=== PATIENT | female | born 1935 | race Caucasian/White ===

== ENCOUNTER 2018-12-11 16:38 | Inpatient (IN) | payer OTHER ==
--- NOTE | 2018-12-11 16:44 | PDOC ---
Rapid Medical Evaluation Medical Evaluation: I have performed a brief in-person evaluation of this patient. The patient presents with a chief complaint of: hx of DM, CABG, HTN; C/O generalized abdominal pain, emesis, watery diarrhea x 2-3 days ; denies recent travel; her PCP Chitra Lam had done bloodwork and CT A/P; bloodwork showed elevated lipase (please refer to paperwork patient's daughter brought) - wants patient admitted pancreatitis Pertinent physical exam findings: In NAD I have ordered the following: Labs, IVF The patient will proceed to the ED for further evaluation. 12/11/18 16:39
[2018-12-11] MEDS ORDERED: SODIUM CHLORIDE 500 ML IV STA (16:45)
[2018-12-11] MEDS ORDERED: SODIUM CHLORIDE 1,000 ML IV STA (17:18)
[2018-12-11] MEDS ORDERED: LACTATED RINGERS SOLUTION 1000 ML INFUS.BAG IV ONE (17:19)
[2018-12-11] MEDS ORDERED: morphine CARPU-JECT 2 MG/1 ML DISP.SYRIN IVPUSH ONE (17:31)
[2018-12-11] MEDS ORDERED: ONDANSETRON 4 MG/2 ML VIAL IVPUSH ONE (17:31)
[2018-12-11] MEDS ORDERED: morphine SULFATE 4 MG/ML VIAL ONE (17:37)
[2018-12-11] MEDS ORDERED: ONDANSETRON 4 MG/2 ML VIAL ONE (17:37)
--- NOTE | 2018-12-11 17:42 | PDOC ---
History of Present Illness - General Chief Complaint: Pain Stated Complaint: SEND BY HER DOCTOR Time Seen by Provider: 12/11/18 16:39 History Source: Patient Exam Limitations: Language Barrier ([place] speaker used) - History of Present Illness Initial Comments: 12/11/18 17:32 Patient is 83F with history of DM, CABG, vertigo and HTN here today with abdominal pain that started two weeks ago. Patient was evaluated at [facility] yesterday and found to have a lipase of >5000 and elevated lipase ( patient has paperwork from discharge at bedside). CT showed wall calcifications , trace pericholecystic fluid, gallbladder duct dilatation, but no definite pancreatitis or cholecystitis ([facility] contacted). Patient endorses epigastric abdominal pain, nausea, vomiting. Denies fevers, chills. Denies chest pain and shortness of breath. PCP: Genaro GI: Kofi Das) Past History - Past Medical History Allergies/Adverse Reactions: Allergies Allergy/AdvReac Type Severity Reaction Status Date / Time No Known Allergies Allergy Verified 12/11/18 16:44 Home Medications: Ambulatory Orders Atorvastatin Ca [Lipitor] 40 mg PO HS 12/11/18 Cardiac Disorders: Yes (tripple bypass) COPD: No Dementia: (?) Diabetes: Yes HTN: Yes Other medical history: hard of hearing - Suicide/Smoking/Psychosocial Hx Smoking History: Current every day smoker Number of Cigarettes Smoked Daily: 2 Information on smoking cessation initiated: No Hx Alcohol Use: Yes (socially) Drug/Substance Use Hx: No Review of Systems - Review of Systems Comments:: 12/11/18 17:44 GENERAL/CONSTITUTIONAL: No fever or chills. No weakness. HEAD, EYES, EARS, NOSE AND THROAT: No change in vision. No sore throat. CARDIOVASCULAR: No chest pain or shortness of breath RESPIRATORY: No cough, wheezing, or hemoptysis. GASTROINTESTINAL: +nausea, +vomiting, +diarrhea. GENITOURINARY: No dysuria, frequency, or change in urination. MUSCULOSKELETAL: No joint or muscle swelling or pain. No neck or back pain. SKIN: No rash NEUROLOGIC: No headache, vertigo, loss of consciousness, or change in strength/ sensation. ENDOCRINE: No increased thirst. No abnormal weight change HEMATOLOGIC/LYMPHATIC: No anemia, easy bleeding, or history of blood clots. ALLERGIC/IMMUNOLOGIC: No hives or skin allergy. *Physical Exam - Vital Signs Last Vital Signs Temp Pulse Resp BP Pulse Ox 97.9 F 66 18 171/75 H 99 12/11/18 16:40 12/11/18 16:40 12/11/18 16:40 12/11/18 16:40 12/11/18 16:40 - Physical Exam Comments: 12/11/18 17:46 GENERAL: Awake, alert, and fully oriented, in no acute distress HEAD: No signs of trauma, normocephalic, atraumatic EYES: PERRLA, EOMI, sclera anicteric, conjunctiva clear ENT: Auricles normal inspection, hearing grossly normal, nares patent, oropharynx clear without exudates. Moist mucosa NECK: Normal ROM, supple, no lymphadenopathy, JVD, or masses LUNGS: No distress, speaks full sentences, clear to auscultation bilaterally HEART: Regular rate and rhythm, normal S1 and S2, no murmurs, rubs or gallops, peripheral pulses normal and equal bilaterally. ABDOMEN: Soft, tender in epigastrium, normoactive bowel sounds. No guarding, no rebound. EXTREMITIES: Normal inspection, Normal range of motion, no edema. No clubbing or cyanosis. NEUROLOGICAL: Cranial nerves II through XII grossly intact. Normal speech, no focal sensorimotor deficits SKIN: Warm, Dry, normal turgor, no rashes or lesions noted. ED Treatment Course - LABORATORY CBC & Chemistry Diagram: 12/11/18 17:01 12/11/18 17:06 - RADIOLOGY Radiology Studies Ordered: Category Date Time Status ABDOMEN US -LIMITED [US] Stat Ultrasound 12/11/18 17:17 Ordered - Medications Given in the ED: ED Medications Discontinued Medications Generic Name Dose Route Start Last Admin Trade Name Freq PRN Reason Stop Dose Admin Sodium Chloride 500 mls @ 500 mls/hr 12/11/18 16:45 12/11/18 17:23 Normal Saline - IV 12/11/18 17:44 Not Given ASDIR STA Lactated Ringer's 1,000 ml 12/11/18 17:19 12/11/18 17:28 Lactated Ringers Solution IV 12/11/18 17:20 1,000 ml ONCE ONE Administration Medical Decision Making - Medical Decision Making 12/11/18 17:47 Patient is 83F with history of DM, CABG, HTN and vertigo here today with abdominal pain. Elevated lipase and amylase yesterday. CT showed no specific pancreatitis. Will evaluate with cbc, cmp, lipase, ua, us. Will admit. 12/11/18 18:50 Lipase 2k, down from 5k yesterday. CBC stable. CMP shows elevated glucose, no gap. UA shows glucose. US shows cbd of 0.87, gallstone of 1.7x1.1cm at neck. Dr Kong (GI) and Dr Lam paged. 12/11/18 19:06 Case d/w Dr Kong and Genaro, will keep NPO and admit. Takes aspirin, can continue baby aspirin. No other antiplatelets or AC. *DC/Admit/Observation/Transfer Diagnosis at time of Disposition: Gallstone pancreatitis - Discharge Dispostion Condition at time of disposition: Stable Decision to Admit order: Yes - Referrals Referrals: Chitra Lam [Primary Care Provider] - - Patient Instructions - Post Discharge Activity
[2018-12-11 17:58] LABS: ALBUMIN 3.6 g/dl (3.4-5.0); BILIRUBIN,TOTAL 0.2 mg/dL (0.2-1); CALCIUM 9.4 mg/dL (8.5-10.1); CREATININE 1.3 mg/dL (0.55-1.3); POTASSIUM 3.7 mmol/L (3.5-5.1); TOT PROT 7.7 g/dl (6.4-8.2)
[2018-12-11 17:59] LABS: BASO % 0.3 % (0-2.0); EOS % 0.3 % (0-4.5); HEMATOCRIT 35.6 % (32.4-45.2); HEMOGLOBIN 11.7 GM/dL (10.7-15.3); LYMPH % 13.2 % (8-40); MCHC 32.8 g/dl (32.0-36.0); MEAN CELL VOLUME 91.5 fl (80-96); MEAN PLT VOLUME 8.9 fl (7.5-11.1); MONO % 6.3 % (3.8-10.2); NEUT % 79.9 % (42.8-82.8); PLATELET COUNT 317 K/MM3 (134-434); RBC 3.89 M/mm3 (3.60-5.2); RDW 15.6 % (11.6-15.6); WHITE BLOOD COUNT 4.4 K/mm3 (4.0-10.0)
[2018-12-11 18:00] LABS: EPI CELLS 2.1 /HPF (0-5/HPF); URINE APPEARANCE CLEAR; URINE BACTERIA 3.5 /hpf (NEGATIVE); URINE BILIRUBIN NEGATIVE (NEGATIVE); URINE CASTS 6 /lpf (0-8); URINE COLOR YELLOW; URINE GLUCOSE (UA) 3+ (NEGATIVE); URINE KETONE NEGATIVE (NEGATIVE); URINE LEUK ESTERASE TRACE (NEGATIVE); URINE NITRITE NEGATIVE (NEGATIVE); URINE PROTEIN TRACE (NEGATIVE); URINE RBC 1 /hpf (0-4); URINE UROBILINOGEN 0.2 mg/dL (0.2-1.0); URINE WBC 6 /hpf (0-5)
[2018-12-11] MEDS ORDERED: LACTATED RINGERS SOLUTION 1,000 ML/1,000 ML INFUS.BAG IV SCH (19:15)
--- NOTE | 2018-12-11 19:42 | PDOC ---
Documentation entered by Karen Collins SCRIBE, acting as scribe for Tracy Larson MD. Tracy Larson MD: This documentation has been prepared by the Karina roach Adrianna, SCRIBE, under my direction and personally reviewed by me in its entirety. I confirm that the documentation accurately reflects all work, treatment, procedures, and medical decision making performed by me. Attending Attestation - Resident Resident Name: Obie Spear - [facility] HPI: The patient is an 83 year old female, with a significant PMH of coronary heart disease (s/p CABG), diabetes, vertigo, and hypertension, who presents to the emergency department today complaining of abdominal pain, nausea, vomit, and diarrhea for 2 days. Patient reports epigastric abdominal pain, multiple episodes of NBNB emesis, and watery stool. Patient endorses going to [place] yesterday for these issues, and had CT abdomen/pelvis with gallstones and elevated lipase (>5000). Patient saw her PCP earlier today, who advised she comes to the ER for admission of pancreatitis. Patient endorses feeling slightly better while in the ED, and denies being nauseous at this time. The patient denies chest pain, shortness of breath, headache and dizziness. Denies fever, chills, and constipation. Denies dysuria, frequency, urgency and hematuria. Denies recent travel Allergies: NKA Past surgical history: CABG Social history: No reported PCP: Dr. Chitra Lam GI: Dr. Kirby 12/11/18 18:08 - Physicial Exam PE: GENERAL: +Slightly cachectic. Awake, alert, and fully oriented. HEAD: No signs of trauma EYES: PERRLA, EOMI, sclera anicteric, conjunctiva clear ENT: Auricles normal inspection, hearing grossly normal, nares patent, oropharynx clear without exudates. Moist mucosa NECK: Normal ROM, supple, no lymphadenopathy, JVD, or masses LUNGS: Breath sounds equal, clear to auscultation bilaterally. No wheezes, and no crackles HEART: Regular rate and rhythm, normal S1 and S2, no murmurs, rubs or gallops ABDOMEN: Soft, nontender, normoactive bowel sounds. No guarding, no rebound. No masses EXTREMITIES: Normal range of motion, no edema. No clubbing or cyanosis. No cords, erythema, or tenderness NEUROLOGICAL: Cranial nerves II through XII grossly intact. Normal speech, normal gait SKIN: Warm, Dry, normal turgor, no rashes or lesions noted. 12/11/18 18:28 - Medical Decision Making 18:20pm- paged Dr. Lam's call service, awaiting call back 18:48pm- paged Dr. Kong's service, awaiting call back 18:52pm- resident spoke with Dr. Lam concerning patient's care, she is in agreement with the plan 19:00pm- resident spoke with Dr. Kong concerning patient's care, he is in agreement with the plan 12/11/18 19:31 12/11/18 19:33 Pt presents to the ED complaining of a two week history of epigastric abdominal pain and nausea and vomiting. Seen at an outside hospital and had labs and imaging consistent with pancreatitis. Today, labs are also consistent with pancreatitis. US shows large gallstone in the gall bladder neck with dilated CBD. Will admit to medicine. Surgery and GI consulted. 12/11/18 19:44 EXAM#: TYPE/EXAM: RESULT: [id number] US/ABDOMEN US -LIMITED Pancreatitis. IMPRESSION: Gallstones and a sludge without wall thickening or pericholecystic free fluid. Dilated common bile duct measuring 9 mm for which further evaluation with MRCP is needed. Reported By: Qiana Cordoba MD 12/11/18 19:09
[2018-12-11] MEDS ORDERED: MECLIZINE HCL 12.5 MG TABLET PO PRN (22:21)
[2018-12-11] MEDS ORDERED: ONDANSETRON 4 MG/2 ML VIAL IVPB PRN (22:29)
[2018-12-11] MEDS ORDERED: SODIUM CHLORIDE 1,000 ML IV SCH (22:30)
[2018-12-11] MEDS: INSULIN SLIDING SCALE (NOVOLOG) 1 VIAL SQ SCH ×2 (22:46→23:02)
[2018-12-11] MEDS: INSULIN (NOVOLOG) ASPART 100 UNITS/ML 10ML VIAL SQ SCH (22:50)
[2018-12-11] MEDS ORDERED: amLODIPine BESYLATE 2.5 MG TABLET (FP) PO ONE (23:15)
[2018-12-12] MEDS: INSULIN SLIDING SCALE (NOVOLOG) 1 VIAL SQ SCH ×5 (06:25→22:58)
[2018-12-12] MEDS ORDERED: INSULIN (LEVEMIR) 100 UNITS/ML UNITS SQ SCH (07:00)
--- NOTE | 2018-12-12 07:58 | PN ---
Progress Note (short form) - Note Progress Note: surgery 83f cad with elevated lipase and u/s showing dilated cbd and gallstones. Application Tester recommends mrcp or ercp. Plan- possible biliary pancreatitis. r/u cbd stone/mass. after cbd evaluated by gi and lipase normalizes can consider cholecystectomy this admission if medically a candidate.
[2018-12-12 08:10] LABS: BASO % 0.4 % (0-2.0); EOS % 0.5 % (0-4.5); HEMATOCRIT 33.5 % (32.4-45.2); HEMOGLOBIN 11.1 GM/dL (10.7-15.3); LYMPH % 22.6 % (8-40); MCH 29.9 pg (25.7-33.7); MCHC 33.1 g/dl (32.0-36.0); MEAN CELL VOLUME 90.3 fl (80-96); MEAN PLT VOLUME 8.3 fl (7.5-11.1); MONO % 6.9 % (3.8-10.2); NEUT % 69.6 % (42.8-82.8); PLATELET COUNT 275 K/MM3 (134-434); RDW 15.6 % (11.6-15.6); WHITE BLOOD COUNT 4.9 K/mm3 (4.0-10.0)
[2018-12-12] MEDS: LISINOPRIL 5 MG TABLET (FP) PO SCH ×3 (08:33→10:32)
[2018-12-12 09:01] LABS: ALK PHOS 122 U/L (45-117); AMYLASE 306 U/L (25-115); ANION GAP 9 MMOL/L (8-16); BILIRUBIN,TOTAL 0.5 mg/dL (0.2-1); BLOOD UREA NITROGEN 13 mg/dL (7-18); CHLORIDE 101 mmol/L (98-107); CO2 29 mmol/L (21-32); CREATININE 0.7 mg/dL (0.55-1.3); GLUCOSE,RANDOM 91 mg/dL (74-106); LIPASE 4013 U/L (73-393); SGOT/AST 116 U/L (15-37); SGPT/ALT 52 U/L (13-61); SODIUM 138 mmol/L (136-145); TOT PROT 6.4 g/dl (6.4-8.2)
[2018-12-12] MEDS: ESCITALOPRAM OXALATE 10 MG TABLET (FP) PO SCH (09:37)
[2018-12-12] MEDS: HEPARIN NA (PORCINE) 5,000 UNITS/ML 1ML VIAL SQ SCH ×2 (09:37→22:46)
[2018-12-12] MEDS: FOLIC ACID 1 MG TABLET (FP) PO SCH (09:37)
[2018-12-12] MEDS ORDERED: POTASSIUM CHLORIDE TABS 10 MEQ TABLET.ER (FP) PO ONE (09:44)
--- NOTE | 2018-12-12 09:49 | HP ---
Admitting History and Physical - Primary Care Physician PCP: Chitra Lam S - Admission Chief Complaint: N/V/D/ abdominal pain History of Present Illness: Patient is 83F with history of DM, CABG, vertigo and HTN seen in my office yesterday with abdominal pain that started two weeks ago. Patient was evaluated at [facility] 2 days ago and found to have a lipase of >5000 and elevated amylase (patient's daughter has paperwork from discharge at bedside). CT al showed wall calcifications, trace pericholecystic fluid, gallbladder duct dilatation, but no definite pancreatitis or cholecystitis ([facility] contacted). Patient endorses epigastric abdominal pain, nausea, vomiting. Denies fevers, chills. Denies chest pain and shortness of breath. I sent pt to ER yesterday from my office (accompanied by her daughter) admitted with pancreatitis History Source: Patient, Family Member Limitations to Obtaining History: No Limitations - Past Medical History Cardiovascular: Yes: CAD, CHF, HTN Pulmonary: Yes: COPD Endocrine: Yes: Diabetes Mellitus - Smoking History Smoking history: Current every day smoker Aproximately how many cigarettes per day: 2 - Alcohol/Substance Use Hx Alcohol Use: Yes (socially) History of Substance Use: reports: None - Social History Usual Living Arrangement: Yes: With Child ADL: Independent History of Recent Travel: No Home Medications - Allergies Allergies/Adverse Reactions: Allergies Allergy/AdvReac Type Severity Reaction Status Date / Time No Known Allergies Allergy Verified 12/11/18 16:44 - Home Medications Home Medications: Ambulatory Orders Acidoph/L.bulg/Bif.b/S.thermop [Bacid Caplet] 1 each PO DAILY 12/11/18 Aspirin [ASA -] 325 mg PO DAILY 12/11/18 Atorvastatin Ca [Lipitor] 40 mg PO HS 12/11/18 Escitalopram Oxalate [Lexapro -] 10 mg PO DAILY 12/11/18 Ferrous Sulfate [Iron] 325 mg PO DAILY 12/11/18 Folic Acid 1 mg PO DAILY 12/11/18 Furosemide 20 mg PO DAILY 12/11/18 Glyburide 5 mg PO DAILY 12/11/18 Insulin Aspart [Novolog] 6 unit SQ DAILY 12/11/18 Insulin Detemir [Levemir Flextouch] 20 unit SQ DAILY 12/11/18 Lisinopril [Zestril] 2.5 mg PO DAILY 12/11/18 Meclizine HCl 12.5 mg PO PRN 12/11/18 Multivitamin [Multiple Vitamins] 1 each PO DAILY 12/11/18 Simvastatin 80 mg PO DAILY 12/11/18 Family Disease History - Family Disease History Family History: Unremarkable Review of Systems - Review of Systems Constitutional: reports: Loss of Appetite. denies: Chills, Fever Eyes: denies: Blind Spots, Blurred Vision, Double Vision HENT: denies: Difficult Swallowing, Ear Pain, Epistaxis Neck: denies: Stiffness, Tenderness Cardiovascular: denies: Chest Pain, Edema, Palpitations, Shortness of Breath Respiratory: denies: Cough, SOB, SOB on Exertion, Wheezing Gastrointestinal: reports: Abdominal Pain, Diarrhea, Nausea, Vomiting. denies: Bloating, Constipation, Dysphagia, Rectal Bleeding, Vomiting Blood Genitourinary: denies: Burning, Dysuria, Flank Pain Musculoskeletal: denies: Back Pain, Extremity Pain, Joint Pain Neurological: denies: Change in LOC, Confusion Endocrine: reports: Unexplained Weight Loss Hematology/Lymphatic: denies: Easily Bruised, Excessive Bleeding, Swollen Glands Psychiatric: denies: Altered Sleep Pattern, Anxiety, Depression Physical Examination Vital Signs: Vital Signs Temperature 97.9 F 12/12/18 06:00 Pulse Rate 62 12/12/18 06:00 Respiratory Rate 18 12/12/18 06:00 Blood Pressure 178/73 H 12/12/18 06:00 O2 Sat by Pulse Oximetry (%) 95 12/11/18 21:23 Constitutional: Yes: Calm Eyes: No: Conjunctiva Clear, EOM Intact HENT: No: Atraumatic Neck: No: Supple, Trachea Midline Cardiovascular: No: Regular Rate and Rhythm Respiratory: Yes: CTA Bilaterally Gastrointestinal: Yes: Soft, Tenderness. No: Distention Renal/: No: CVA Tenderness - Left, CVA Tenderness - Right, Hematuria Musculoskeletal: No: Joint Stiffness, Joint Swelling Extremities: No: Cold, Cool Edema: No Integumentary: No: Rash, Venous Stasis Changes Neurological: Yes: WNL, Alert, Oriented ...Motor Strength: WNL Psychiatric: Yes: WNL, Alert, Oriented. No: Agitated, Suicidal Ideation Labs: CBC, BMP 12/12/18 06:45 12/12/18 06:45 Imaging - Results Chest X-ray: Report Reviewed Ultrasound: Report Reviewed Other: Report Reviewed Assessment/Plan Patient is 83F with history of DM, CABG, vertigo and HTN admitted with pancreatitis - pt also has gallstones, but will check MRCP r/o biliary obstruction / malignancy NPO; IVF f/u labs no antibiotics for now (NL WBC, NL temp) GI and surgery eval; cardiology eval for cardiac clearance in case she needs surgery BP and GLU / DM control DVT pfx falls pfx d/w pt do not get OOB alone, call for help if needs OOB
[2018-12-12] MEDS ORDERED: INSULIN ASPART 6 UNIT SQ SCH (10:00)
[2018-12-12] MEDS ORDERED: ASPIRIN 325 MG TABLET PO SCH (10:00)
[2018-12-12] MEDS ORDERED: POTASSIUM CHLORIDE 10 MEQ in DEXTROSE 5%-NORMAL SALINE 1,000 ML IVPB SCH (10:00)
[2018-12-12] MEDS ORDERED: amLODIPine BESYLATE 2.5 MG TABLET (FP) PO SCH (10:00)
[2018-12-12] MEDS ORDERED: LISINOPRIL 5 MG TABLET (FP) PO ONE (10:30)
--- NOTE | 2018-12-12 10:44 | CON.GI ---
Consult Consult Specialty:: GI Referred by:: Dr Emilia Lam Reason for Consultation:: pancreatitis - History of Present Illness Chief Complaint: abdominal pain x several days History of Present Illness: 83 y.o. F with history of CABG, DM, abd pain x several days. Apparently evaluated at [facility], found to have elevated lipase but not admitted. Seen by Dr Lam and admitted. Ultrasound documents gallstones and a slightly dilated common bile duct. Labs: lipase rising today, over 4000, but not jaundiced and with normal WBC. CBCD WBC 4.9 K/mm3 (4.0-10.0) 12/12/18 06:45 RBC 3.70 M/mm3 (3.60-5.2) 12/12/18 06:45 Hgb 11.1 GM/dL (10.7-15.3) 12/12/18 06:45 Hct 33.5 % (32.4-45.2) 12/12/18 06:45 MCV 90.3 fl (80-96) 12/12/18 06:45 MCHC 33.1 g/dl (32.0-36.0) 12/12/18 06:45 RDW 15.6 % (11.6-15.6) 12/12/18 06:45 Plt Count 275 K/MM3 (134-434) 12/12/18 06:45 MPV 8.3 fl (7.5-11.1) 12/12/18 06:45 CMP Sodium 138 mmol/L (136-145) 12/12/18 06:45 Potassium 3.0 mmol/L (3.5-5.1) L 12/12/18 06:45 Chloride 101 mmol/L (98-107) 12/12/18 06:45 Carbon Dioxide 29 mmol/L (21-32) 12/12/18 06:45 Anion Gap 9 MMOL/L (8-16) 12/12/18 06:45 BUN 13 mg/dL (7-18) 12/12/18 06:45 Creatinine 0.7 mg/dL (0.55-1.3) 12/12/18 06:45 Calcium 9.0 mg/dL (8.5-10.1) 12/12/18 06:45 Total Bilirubin 0.5 mg/dL (0.2-1) 12/12/18 06:45 AST 116 U/L (15-37) H 12/12/18 06:45 ALT 52 U/L (13-61) 12/12/18 06:45 Alkaline Phosphatase 122 U/L (45-117) H 12/12/18 06:45 Total Protein 6.4 g/dl (6.4-8.2) 12/12/18 06:45 Albumin 3.0 g/dl (3.4-5.0) L 12/12/18 06:45 - History Source History Provided By: Patient, Medical Record Limitations to Obtaining History: Language Barrier - Alcohol/Substance Use Hx Alcohol Use: Yes (socially) - Smoking History Smoking history: Current every day smoker Aproximately how many cigarettes per day: 2 Home Medications - Allergies Allergies/Adverse Reactions: Allergies Allergy/AdvReac Type Severity Reaction Status Date / Time No Known Allergies Allergy Verified 12/11/18 16:44 - Home Medications Home Medications: Ambulatory Orders Acidoph/L.bulg/Bif.b/S.thermop [Bacid Caplet] 1 each PO DAILY 12/11/18 Aspirin [ASA -] 325 mg PO DAILY 12/11/18 Atorvastatin Ca [Lipitor] 40 mg PO HS 12/11/18 Escitalopram Oxalate [Lexapro -] 10 mg PO DAILY 12/11/18 Ferrous Sulfate [Iron] 325 mg PO DAILY 12/11/18 Folic Acid 1 mg PO DAILY 12/11/18 Furosemide 20 mg PO DAILY 12/11/18 Glyburide 5 mg PO DAILY 12/11/18 Insulin Aspart [Novolog] 6 unit SQ DAILY 12/11/18 Insulin Detemir [Levemir Flextouch] 20 unit SQ DAILY 12/11/18 Lisinopril [Zestril] 2.5 mg PO DAILY 12/11/18 Meclizine HCl 12.5 mg PO PRN 12/11/18 Multivitamin [Multiple Vitamins] 1 each PO DAILY 12/11/18 Simvastatin 80 mg PO DAILY 12/11/18 Physical Exam-GI Vital Signs: Vital Signs Temperature 97.9 F 12/12/18 06:00 Pulse Rate 62 12/12/18 06:00 Respiratory Rate 18 12/12/18 06:00 Blood Pressure 178/73 H 12/12/18 06:00 O2 Sat by Pulse Oximetry (%) 95 12/11/18 21:23 Labs: CBC, BMP 12/12/18 06:45 12/12/18 06:45 Imaging - Results Ultrasound: Report Reviewed, Image Reviewed Assessment/Plan Agree that biliary pancreatitis is most likely diagnosis. In this age group, though, pancreatic cancer is also a possibile cause of acute pancreatitis. If her DM is of relatively recent onset and if she has been losing weight then malignancy becomes a greater concern. I have ordered an MRI of the pancreas/MRCP. Continue to follow LFTs, lipase, WBC.
[2018-12-12] MEDS: morphine SULFATE 4 MG/ML VIAL IVPUSH PRN (12:25)
[2018-12-12] MEDS: POTASSIUM CHLORIDE 10 MEQ in DEXTROSE 5%-NORMAL SALINE 1,000 ML IVPB SCH ×2 (12:30→22:45)
[2018-12-12] MEDS ORDERED: amLODIPine BESYLATE 2.5 MG TABLET (FP) PO ONE (13:30)
[2018-12-12] MEDS ORDERED: LORazepam 1 MG TABLET PO ONE (16:30)
--- NOTE | 2018-12-12 18:13 | CON.CARD ---
Consult Consult Specialty:: cardiology Reason for Consultation:: CAD/CABG; now with likely pancreatic disorder - History of Present Illness Chief Complaint: Pt alert; c/o abdominal pain. History of Present Illness: The patient is an 83 year old female with a significant PMH of coronary heart disease (s/pMI; CABG 2009), COPD (stopped heavy smoking habit at time of CABG) , diastolic CHF, HTN, pulmonary HTN, DM, hyperllipidemia, s/p total hip replacement, vertigo, who presents to the emergency department today complaining of abdominal pain, nausea, vomit, and diarrhea for 2 days. Patient reports epigastric abdominal pain, multiple episodes of NBNB emesis, and watery stool. Patient endorses going to [place] yesterday for these issues, and had CT abdomen/pelvis with gallstones and elevated lipase (>5000). Patient saw her PCP earlier today, who advised she comes to the ER for admission of pancreatitis. Patient endorses feeling slightly better while in the ED, and denies being nauseous at this time. - History Source History Provided By: Patient, Family Member, Caregiver Limitations to Obtaining History: No Limitations - Past Medical History Cardio/Vascular: Yes: CAD, CHF, HTN, Hyperlipdemia Pulmonary: Yes: COPD Reproductive: Yes: Postmenopausal ...: No Psych: Yes: Anxiety - Alcohol/Substance Use Hx Alcohol Use: Yes (socially) - Smoking History Smoking history: Current every day smoker Aproximately how many cigarettes per day: 2 Home Medications - Allergies Allergies/Adverse Reactions: Allergies Allergy/AdvReac Type Severity Reaction Status Date / Time No Known Allergies Allergy Verified 12/11/18 16:44 - Home Medications Home Medications: Ambulatory Orders Acidoph/L.bulg/Bif.b/S.thermop [Bacid Caplet] 1 each PO DAILY 12/11/18 Aspirin [ASA -] 325 mg PO DAILY 12/11/18 Atorvastatin Ca [Lipitor] 40 mg PO HS 12/11/18 Escitalopram Oxalate [Lexapro -] 10 mg PO DAILY 12/11/18 Ferrous Sulfate [Iron] 325 mg PO DAILY 12/11/18 Folic Acid 1 mg PO DAILY 12/11/18 Furosemide 20 mg PO DAILY 12/11/18 Glyburide 5 mg PO DAILY 12/11/18 Insulin Aspart [Novolog] 6 unit SQ DAILY 12/11/18 Insulin Detemir [Levemir Flextouch] 20 unit SQ DAILY 12/11/18 Lisinopril [Zestril] 2.5 mg PO DAILY 12/11/18 Meclizine HCl 12.5 mg PO PRN 12/11/18 Multivitamin [Multiple Vitamins] 1 each PO DAILY 12/11/18 Simvastatin 80 mg PO DAILY 12/11/18 Family Disease History - Family Disease History Family History: Denies Review of Systems - Review of Systems Constitutional: reports: Weakness Eyes: reports: No Symptoms HENT: reports: No Symptoms Neck: reports: No Symptoms Cardiovascular: reports: Shortness of Breath. denies: Chest Pain, Edema Respiratory: reports: Exercise Intolerance, SOB on Exertion Gastrointestinal: reports: Abdominal Pain, Bloating, Nausea Genitourinary: reports: No Symptoms Breasts: reports: No Symptoms Reported Musculoskeletal: reports: Muscle Weakness Integumentary: reports: No Symptoms Neurological: reports: Weakness Endocrine: reports: No Symptoms Hematology/Lymphatic: reports: No Symptoms Psychiatric: reports: Anxiety - Risk Factors Known Risk Factors: Yes: Age, Diabetes Mellitus, Hypercholesterolemia, Hypertension, Physical Inactivity, Prior LA /Emb Stroke, Smoking (former) Vital Signs: Vital Signs Temperature 98.1 F 12/12/18 15:00 Pulse Rate 68 12/12/18 15:00 Respiratory Rate 18 12/12/18 15:00 Blood Pressure 142/59 L 12/12/18 15:00 O2 Sat by Pulse Oximetry (%) 95 12/12/18 09:00 Constitutional: Yes: Anxious, Thin Eyes: Yes: WNL HENT: Yes: WNL Neck: Yes: WNL Respiratory: Yes: Diminished, Tachypnea Gastrointestinal: Yes: Soft. No: Tenderness Renal/: No: Anuria Heart Sounds: Yes: S1, S2, S4 Murmur: Yes: Systolic Murmur, Grade 2 Musculoskeletal: Yes: Muscle Weakness Extremities: Yes: Cool Edema: No Peripheral Pulses WNL: Yes Integumentary: Yes: WNL Neurological: Yes: Alert, Oriented, Weakness Psychiatric: Yes: Alert, Oriented - Other Data Labs, Other Data: CBC, BMP 12/12/18 06:45 12/12/18 06:45 Troponin, BNP 12/12/18 06:45 Troponin I < 0.02 Troponin, BNP 12/12/18 06:45 Troponin I < 0.02 Abnormal Lab Results 12/13/18 06:45 Anion Gap 5 L Random Glucose 182 H Magnesium 1.3 L AST 49 H Alkaline Phosphatase 143 H Total Protein 6.2 L Albumin 2.7 L Total Amylase 171 H Lipase 865 H Ejection Fraction %: LVEF > or = 40 % Imaging - Results Chest X-ray: Pending EKG: Pending Problem List - Problems (1) COPD (chronic obstructive pulmonary disease) Code(s): J44.9 - CHRONIC OBSTRUCTIVE PULMONARY DISEASE, UNSPECIFIED (2) HTN (hypertension) Assessment/Plan: On lisinopril and metoprolol ER. Code(s): I10 - ESSENTIAL (PRIMARY) HYPERTENSION (3) Diabetes Code(s): E11.9 - TYPE 2 DIABETES MELLITUS WITHOUT COMPLICATIONS (4) History of left hip replacement Code(s): Z96.642 - PRESENCE OF LEFT ARTIFICIAL HIP JOINT (5) S/P CABG (coronary artery bypass graft) Assessment/Plan: s/p LA-->CABG 2009; Stress MIBI negative for ischemia 2011. Code(s): Z95.1 - PRESENCE OF AORTOCORONARY BYPASS GRAFT (6) Diastolic CHF Assessment/Plan: on lisinopril and metoprolol. Code(s): I50.30 - UNSPECIFIED DIASTOLIC (CONGESTIVE) HEART FAILURE (7) Gallstone pancreatitis Assessment/Plan: US: gallstones; dilated CBD. For MRCP. GI w/u noted. Code(s): K85.10 - BILIARY ACUTE PANCREATITIS WITHOUT NECROSIS OR INFECTION (8) Hypokalemia Assessment/Plan: replete all electrolytes: Keep K 4.0-4.5 Keep Mg 2-2.4 Keep PO4 2.5-4.9 Code(s): E87.6 - HYPOKALEMIA
[2018-12-12] MEDS ORDERED: METOPROLOL TARTRATE 25 MG TABLET (FP) PO ONE (18:35)
[2018-12-12 19:09] LABS: INR 1.02 (0.83-1.09)
[2018-12-12 19:11] LABS: ACTIVATED PTT 27.8 SECONDS (25.2-36.5)
[2018-12-12 19:45] LABS: BILIRUBIN,DIRECT 0.1 mg/dL (0.0-0.2); BILIRUBIN,TOTAL 0.3 mg/dL (0.2-1); CALCIUM 8.1 mg/dL (8.5-10.1); MAGNESIUM 1.3 mg/dL (1.8-2.4); POTASSIUM 3.1 mmol/L (3.5-5.1); TOT PROT 6.5 g/dl (6.4-8.2)
[2018-12-12] MEDS: METOPROLOL TARTRATE 25 MG TABLET (FP) PO SCH (22:45)
[2018-12-12] MEDS: ATORVASTATIN CA 40 MG TABLET (FP) PO SCH (22:45)
[2018-12-12] MEDS: INSULIN (NOVOLOG) ASPART 100 UNITS/ML 10ML VIAL SQ SCH (22:58)
[2018-12-13] MEDS: INSULIN (LEVEMIR) 100 UNITS/ML UNITS SQ SCH (06:32)
[2018-12-13] MEDS: POTASSIUM CHLORIDE 10 MEQ in DEXTROSE 5%-NORMAL SALINE 1,000 ML IVPB SCH ×3 (07:15→23:14)
[2018-12-13] MEDS ORDERED: MAGNESIUM SULF 50% (8.12 MEQ/2 ML-1 GM VIAL) IVPB ONE (07:30)
[2018-12-13 07:57] LABS: BASO % 0.9 % (0-2.0); EOS % 0.6 % (0-4.5); HEMATOCRIT 33.7 % (32.4-45.2); HEMOGLOBIN 11.2 GM/dL (10.7-15.3); LYMPH % 23.7 % (8-40); MCH 30.3 pg (25.7-33.7); MCHC 33.2 g/dl (32.0-36.0); MEAN CELL VOLUME 91.1 fl (80-96); MEAN PLT VOLUME 8.2 fl (7.5-11.1); MONO % 7.8 % (3.8-10.2); PLATELET COUNT 293 K/MM3 (134-434); RBC 3.71 M/mm3 (3.60-5.2); RDW 15.5 % (11.6-15.6); WHITE BLOOD COUNT 4.3 K/mm3 (4.0-10.0)
[2018-12-13] MEDS: INSULIN SLIDING SCALE (NOVOLOG) 1 VIAL SQ SCH ×4 (08:11→22:13)
[2018-12-13 08:27] LABS: ALBUMIN 2.7 g/dl (3.4-5.0); BILIRUBIN,DIRECT 0.1 mg/dL (0.0-0.2); BILIRUBIN,TOTAL 0.4 mg/dL (0.2-1); CALCIUM 8.5 mg/dL (8.5-10.1); CREATININE 0.8 mg/dL (0.55-1.3); MAGNESIUM 1.3 mg/dL (1.8-2.4); POTASSIUM 3.7 mmol/L (3.5-5.1); TOT PROT 6.2 g/dl (6.4-8.2)
[2018-12-13] MEDS ORDERED: PT OWN MED DRAWER 7, Y5N ONE (08:58)
[2018-12-13] MEDS: amLODIPine BESYLATE 5 MG TABLET (FP) PO SCH (09:00)
[2018-12-13] MEDS: HEPARIN NA (PORCINE) 5,000 UNITS/ML 1ML VIAL SQ SCH ×2 (09:00→22:09)
[2018-12-13] MEDS: POTASSIUM CHLORIDE TABS 20 MEQ TABLET.ER (FP) PO SCH (09:00)
[2018-12-13] MEDS: LISINOPRIL 5 MG TABLET (FP) PO SCH (09:01)
[2018-12-13] MEDS: FOLIC ACID 1 MG TABLET (FP) PO SCH (09:01)
[2018-12-13] MEDS: ESCITALOPRAM OXALATE 10 MG TABLET (FP) PO SCH (09:01)
[2018-12-13] MEDS: METOPROLOL TARTRATE 25 MG TABLET (FP) PO SCH ×2 (09:01→22:09)
--- NOTE | 2018-12-13 09:37 | PN ---
Progress Note, Physician Chief Complaint: in bed feeling a little better no N/V/D still with some abdominal pain but less ; on morphine prn; afebrile. daughter Marcy at bedside - Current Medication List Current Medications: Active Medications Amlodipine Besylate (Norvasc -) 5 mg PO DAILY [facility] Last Admin: 12/13/18 09:00 Dose: 5 mg Atorvastatin Calcium (Lipitor -) 40 mg PO HS [facility] Last Admin: 12/12/18 22:45 Dose: 40 mg Escitalopram Oxalate (Lexapro -) 10 mg PO DAILY [facility] Last Admin: 12/13/18 09:01 Dose: 10 mg Folic Acid (Folic Acid -) 1 mg PO DAILY [facility] Last Admin: 12/13/18 09:01 Dose: 1 mg Heparin Sodium (Porcine) (Heparin -) 5,000 unit SQ BID [facility] Last Admin: 12/13/18 09:00 Dose: 5,000 unit Potassium Chloride 10 meq/ (Dextrose/Sodium Chloride) 1,005 mls @ 100 mls/hr IVPB Q10H [facility] Last Admin: 12/13/18 07:15 Dose: Not Given Insulin Aspart (Novolog Vial) 6 units SQ [facility] Last Admin: 12/12/18 22:58 Dose: 6 units Insulin Aspart (Novolog Vial Sliding Scale -) 1 vial SQ [facility]; Protocol Last Admin: 12/13/18 08:11 Dose: Not Given Insulin Detemir (Levemir Vial) 10 units SQ DAILY@0700 [facility] Last Admin: 12/13/18 06:32 Dose: 10 units Lisinopril (Prinivil) 5 mg PO DAILY [facility] Last Admin: 12/13/18 09:01 Dose: 5 mg Lorazepam (Ativan -) 1 mg PO ONCE ONE Stop: 12/12/18 16:31 Meclizine HCl (Antivert -) 12.5 mg PO Q12H PRN PRN Reason: VERTIGO Metoprolol Tartrate (Lopressor -) 12.5 mg PO BID [facility] Last Admin: 12/13/18 09:01 Dose: 12.5 mg Morphine Sulfate (Morphine Sulfate) 1 mg IVPUSH Q4H PRN PRN Reason: PAIN LEVEL 7 - 10 Last Admin: 12/12/18 12:25 Dose: 1 mg Ondansetron HCl (Zofran Injection) 8 mg IVPB Q8H PRN PRN Reason: NAUSEA Potassium Chloride (K-Dur -) 20 meq PO DAILY [facility] Last Admin: 12/13/18 09:00 Dose: 20 meq - Objective Vital Signs: Vital Signs Temperature 98.3 F 12/13/18 06:00 Pulse Rate 62 12/13/18 06:00 Respiratory Rate 20 12/13/18 06:00 Blood Pressure 161/78 12/13/18 06:00 O2 Sat by Pulse Oximetry (%) 95 12/12/18 09:00 Constitutional: Yes: No Distress, Calm Eyes: Yes: Conjunctiva Clear HENT: Yes: Atraumatic Neck: Yes: Supple Cardiovascular: Yes: Regular Rate and Rhythm Respiratory: Yes: CTA Bilaterally Gastrointestinal: Yes: Soft, Tenderness (general no rebound) Genitourinary: No: CVA Tenderness - Left, CVA Tenderness - Right Musculoskeletal: No: Joint Stiffness, Joint Swelling Extremities: No: Cold, Cool, Cyanosis Edema: No Neurological: Yes: WNL, Alert, Oriented ...Motor Strength: WNL Psychiatric: Yes: WNL, Alert, Oriented. No: Agitated, Suicidal Ideation Labs: CBC, BMP 12/13/18 06:45 12/13/18 06:45 INR, PTT INR 1.02 (0.83-1.09) 12/12/18 18:33 - ....Imaging Other: Report Reviewed Assessment/Plan Patient is 83F with history of DM, CABG, vertigo and HTN admitted with pancreatitis - gallstones, but will check MRCP r/o biliary obstruction / malignancy; pt needs valium before MRI (could not do it without it) ordered NPO; IVF f/u labs no antibiotics for now (NL WBC, NL temp) d/w GI dr Kong GI and surgery f/u cardiology eval for cardiac clearance in case she needs surgery BP and GLU / DM control DVT pfx falls pfx d/w pt do not get OOB alone, call for help if needs OOB
[2018-12-13] MEDS: morphine SULFATE 4 MG/ML VIAL IVPUSH PRN (09:45)
--- NOTE | 2018-12-13 10:29 | PN ---
Progress Note (short form) - Note Progress Note: Pt hungry, still feels gassy. Abdomen soft, nontender today. Labs show declining lipase, lfts. Nl WBC. CMP Sodium 137 mmol/L (136-145) 12/13/18 06:45 Potassium 3.7 mmol/L (3.5-5.1) 12/13/18 06:45 Chloride 104 mmol/L (98-107) 12/13/18 06:45 Carbon Dioxide 28 mmol/L (21-32) 12/13/18 06:45 Anion Gap 5 MMOL/L (8-16) L 12/13/18 06:45 BUN 8 mg/dL (7-18) 12/13/18 06:45 Creatinine 0.8 mg/dL (0.55-1.3) 12/13/18 06:45 Est GFR (CKD-EPI)AfAm 79.02 12/13/18 06:45 Est GFR (CKD-EPI)NonAf 68.18 12/13/18 06:45 POC Glucometer 180 UNITS (80-120) 12/13/18 06:28 Random Glucose 182 mg/dL (74-106) H 12/13/18 06:45 Calcium 8.5 mg/dL (8.5-10.1) 12/13/18 06:45 Magnesium 1.3 mg/dL (1.8-2.4) L 12/13/18 06:45 Total Bilirubin 0.4 mg/dL (0.2-1) 12/13/18 06:45 Direct Bilirubin 0.1 mg/dL (0.0-0.2) 12/13/18 06:45 AST 49 U/L (15-37) H 12/13/18 06:45 ALT 59 U/L (13-61) 12/13/18 06:45 Alkaline Phosphatase 143 U/L (45-117) H 12/13/18 06:45 Creatine Kinase 47 U/L (26-192) 12/12/18 06:45 Troponin I < 0.02 ng/ml (0.00-0.05) 12/12/18 06:45 Total Protein 6.2 g/dl (6.4-8.2) L 12/13/18 06:45 Albumin 2.7 g/dl (3.4-5.0) L 12/13/18 06:45 Total Amylase 306 U/L (25-115) H 12/12/18 06:45 Lipase 865 U/L (73-393) H 12/13/18 06:45 TSH 1.38 uIU/ml (0.358-3.74) 12/13/18 06:45 Suspect pt passed a small stone but will await MRCP. I explained to patient and her daughter (who was here today) that the decision whether to proceed with an ERCP will depend on the MRI findings. I discussed the risks of ERCP including perforation, bleeding, and pancreatitis, which could be severe.
[2018-12-13] MEDS: ATORVASTATIN CA 40 MG TABLET (FP) PO SCH (22:09)
[2018-12-13] MEDS: INSULIN (NOVOLOG) ASPART 100 UNITS/ML 10ML VIAL SQ SCH (22:12)
[2018-12-14] MEDS ORDERED: PT OWN MED DRAWER 7, Y5N ONE ×2 (01:20→10:34)
[2018-12-14] MEDS: POTASSIUM CHLORIDE 10 MEQ in DEXTROSE 5%-NORMAL SALINE 1,000 ML IVPB SCH ×4 (04:39→17:33)
[2018-12-14] MEDS: INSULIN SLIDING SCALE (NOVOLOG) 1 VIAL SQ SCH ×4 (06:33→21:31)
[2018-12-14] MEDS: INSULIN (LEVEMIR) 100 UNITS/ML UNITS SQ SCH (06:33)
--- NOTE | 2018-12-14 07:11 | PN ---
Progress Note, Physician Chief Complaint: Pt alert and oriented; no chest pain; + nausea. History of Present Illness: The patient is an 83 year old female with a significant PMH of coronary heart disease (s/pMI; CABG 2009; negative stress MIBI 2011), COPD (stopped heavy smoking habit at time of CABG), diastolic CHF, HTN, mild-moderate pulmonary HTN , DM, hyperllipidemia, s/p total hip replacement, vertigo, who presents to the emergency department today complaining of abdominal pain, nausea, vomit, and diarrhea for 2 days. Patient reports epigastric abdominal pain, multiple episodes of NBNB emesis, and watery stool. Patient endorses going to [place] yesterday for these issues, and had CT abdomen/pelvis with gallstones and elevated lipase (>5000). Patient saw her PCP earlier today, who advised she comes to the ER for admission of pancreatitis. Patient endorses feeling slightly better while in the ED, and denies being nauseous at this time. Per pt's grandaughter, pt walks 2 flights of stairs in the house several times a day. 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 Denies chest pain or dyspnea. - Current Medication List Current Medications: Active Medications Amlodipine Besylate (Norvasc -) 5 mg PO DAILY [facility] Last Admin: 12/13/18 09:00 Dose: 5 mg Atorvastatin Calcium (Lipitor -) 40 mg PO [facility] Last Admin: 12/13/18 22:09 Dose: 40 mg Escitalopram Oxalate (Lexapro -) 10 mg PO DAILY [facility] Last Admin: 12/13/18 09:01 Dose: 10 mg Folic Acid (Folic Acid -) 1 mg PO DAILY [facility] Last Admin: 12/13/18 09:01 Dose: 1 mg Heparin Sodium (Porcine) (Heparin -) 5,000 unit SQ BID [facility] Last Admin: 12/13/18 22:09 Dose: 5,000 unit Potassium Chloride 10 meq/ (Dextrose/Sodium Chloride) 1,005 mls @ 100 mls/hr IVPB Q10H [facility] Last Admin: 12/14/18 04:39 Dose: Not Given Insulin Aspart (Novolog Vial) 6 units SQ [facility] Last Admin: 12/13/18 22:12 Dose: 6 units Insulin Aspart (Novolog Vial Sliding Scale -) 1 vial SQ [facility]; Protocol Last Admin: 12/14/18 06:33 Dose: 2 units Insulin Detemir (Levemir Vial) 10 units SQ DAILY@0700 [facility] Last Admin: 12/14/18 06:33 Dose: 10 units Lisinopril (Prinivil) 5 mg PO DAILY [facility] Last Admin: 12/13/18 09:01 Dose: 5 mg Lorazepam (Ativan -) 1 mg PO ONCE ONE Stop: 12/12/18 16:31 Meclizine HCl (Antivert -) 12.5 mg PO Q12H PRN PRN Reason: VERTIGO Last Admin: 12/13/18 22:18 Dose: 12.5 mg Metoprolol Tartrate (Lopressor -) 12.5 mg PO BID [facility] Last Admin: 12/13/18 22:09 Dose: 12.5 mg Morphine Sulfate (Morphine Sulfate) 1 mg IVPUSH Q4H PRN PRN Reason: PAIN LEVEL 7 - 10 Last Admin: 12/13/18 09:45 Dose: 1 mg Ondansetron HCl (Zofran Injection) 8 mg IVPB Q8H PRN PRN Reason: NAUSEA Potassium Chloride (K-Dur -) 20 meq PO DAILY [facility] Last Admin: 12/13/18 09:00 Dose: 20 meq - Objective Vital Signs: Vital Signs Temperature 98.5 F 12/14/18 06:00 Pulse Rate 61 12/14/18 06:00 Respiratory Rate 18 12/14/18 06:00 Blood Pressure 166/70 12/14/18 06:00 O2 Sat by Pulse Oximetry (%) 95 12/13/18 21:00 Constitutional: Yes: Calm, Thin Eyes: Yes: WNL HENT: Yes: WNL Neck: Yes: WNL Cardiovascular: Yes: Regular Rate and Rhythm Respiratory: Yes: Regular, Diminished Gastrointestinal: Yes: Soft. No: Tenderness ...Rectal Exam: Yes: Deferred Genitourinary: No: Anuria Breast(s): Yes: WNL Musculoskeletal: Yes: Muscle Weakness Extremities: Yes: Cool Edema: No Peripheral Pulses WNL: Yes Integumentary: Yes: WNL Neurological: Yes: Alert, Oriented, Weakness Psychiatric: Yes: Alert, Oriented, Other (anxiety) Labs: INR, PTT INR 1.02 (0.83-1.09) 12/12/18 18:33 Abnormal Lab Results 12/15/18 05:20 Anion Gap 4 L BUN 4 L Random Glucose 152 H ALT 70 H Alkaline Phosphatase 199 H Albumin 3.0 L Problem List - Problems (1) COPD (chronic obstructive pulmonary disease) Assessment/Plan: bronchodilators, O2 per branch office manager. Code(s): J44.9 - CHRONIC OBSTRUCTIVE PULMONARY DISEASE, UNSPECIFIED (2) HTN (hypertension) Assessment/Plan: On lisinopril, amlodipine, and metoprolol tartrate bid. Code(s): I10 - ESSENTIAL (PRIMARY) HYPERTENSION (3) Diabetes Code(s): E11.9 - TYPE 2 DIABETES MELLITUS WITHOUT COMPLICATIONS (4) History of left hip replacement Code(s): Z96.642 - PRESENCE OF LEFT ARTIFICIAL HIP JOINT (5) S/P CABG (coronary artery bypass graft) Assessment/Plan: s/p ND-->CABG 2009; Stress MIBI negative for ischemia 2011. Code(s): Z95.1 - PRESENCE OF AORTOCORONARY BYPASS GRAFT (6) Diastolic CHF Assessment/Plan: on lisinopril , amlodipine, and metoprolol. F/u BUN/Cr, electrolytes, Is and Os, and daily weight. Code(s): I50.30 - UNSPECIFIED DIASTOLIC (CONGESTIVE) HEART FAILURE (7) Gallstone pancreatitis Assessment/Plan: US: gallstones; dilated CBD. MRCP pending. Code(s): K85.10 - BILIARY ACUTE PANCREATITIS WITHOUT NECROSIS OR INFECTION (8) Hypokalemia Assessment/Plan: replete all electrolytes: Keep K 4.0-4.5 Keep Mg 2-2.4 Keep PO4 2.5-4.9 Code(s): E87.6 - HYPOKALEMIA (9) Hypomagnesemia Assessment/Plan: Mg level 1.3 today. Give 4 g magnesium sulfate IVPB; keep level 2.0-2.4. Code(s): E83.42 - HYPOMAGNESEMIA
[2018-12-14 07:15] LABS: BASO % 0.5 % (0-2.0); EOS % 2.5 % (0-4.5); HEMATOCRIT 34.2 % (32.4-45.2); HEMOGLOBIN 11.6 GM/dL (10.7-15.3); LYMPH % 23.3 % (8-40); MCH 30.6 pg (25.7-33.7); MCHC 33.8 g/dl (32.0-36.0); MEAN CELL VOLUME 90.6 fl (80-96); MEAN PLT VOLUME 8.4 fl (7.5-11.1); MONO % 8.5 % (3.8-10.2); NEUT % 65.2 % (42.8-82.8); PLATELET COUNT 299 K/MM3 (134-434); RBC 3.78 M/mm3 (3.60-5.2); RDW 15.4 % (11.6-15.6); WHITE BLOOD COUNT 4.2 K/mm3 (4.0-10.0)
[2018-12-14 07:25] LABS: ALBUMIN 3.1 g/dl (3.4-5.0); BILIRUBIN,TOTAL 0.5 mg/dL (0.2-1); CALCIUM 9.1 mg/dL (8.5-10.1); CREATININE 0.8 mg/dL (0.55-1.3); MAGNESIUM 1.6 mg/dL (1.8-2.4); POTASSIUM 3.8 mmol/L (3.5-5.1); TOT PROT 6.4 g/dl (6.4-8.2)
--- NOTE | 2018-12-14 08:42 | PN ---
Progress Note, Physician Chief Complaint: awake alert NAD afebrile; less abdominal pain; MRI pending has a small redness area at the R elbow/forearm medial side ?old IV site? will use topical bacitracin and ice / warm packs - Current Medication List Current Medications: Active Medications Amlodipine Besylate (Norvasc -) 5 mg PO DAILY [facility] Last Admin: 12/13/18 09:00 Dose: 5 mg Atorvastatin Calcium (Lipitor -) 40 mg PO HS [facility] Last Admin: 12/13/18 22:09 Dose: 40 mg Escitalopram Oxalate (Lexapro -) 10 mg PO DAILY [facility] Last Admin: 12/13/18 09:01 Dose: 10 mg Folic Acid (Folic Acid -) 1 mg PO DAILY [facility] Last Admin: 12/13/18 09:01 Dose: 1 mg Heparin Sodium (Porcine) (Heparin -) 5,000 unit SQ BID [facility] Last Admin: 12/13/18 22:09 Dose: 5,000 unit Potassium Chloride 10 meq/ (Dextrose/Sodium Chloride) 1,005 mls @ 100 mls/hr IVPB Q10H [facility] Last Admin: 12/14/18 04:39 Dose: Not Given Insulin Aspart (Novolog Vial) 6 units SQ [facility] Last Admin: 12/13/18 22:12 Dose: 6 units Insulin Aspart (Novolog Vial Sliding Scale -) 1 vial SQ [facility]; Protocol Last Admin: 12/14/18 06:33 Dose: 2 units Insulin Detemir (Levemir Vial) 10 units SQ DAILY@0700 [facility] Last Admin: 12/14/18 06:33 Dose: 10 units Lisinopril (Prinivil) 5 mg PO DAILY [facility] Last Admin: 12/13/18 09:01 Dose: 5 mg Lorazepam (Ativan -) 1 mg PO ONCE ONE Stop: 12/12/18 16:31 Meclizine HCl (Antivert -) 12.5 mg PO Q12H PRN PRN Reason: VERTIGO Last Admin: 12/13/18 22:18 Dose: 12.5 mg Metoprolol Tartrate (Lopressor -) 12.5 mg PO BID [facility] Last Admin: 12/13/18 22:09 Dose: 12.5 mg Morphine Sulfate (Morphine Sulfate) 1 mg IVPUSH Q4H PRN PRN Reason: PAIN LEVEL 7 - 10 Last Admin: 12/13/18 09:45 Dose: 1 mg Ondansetron HCl (Zofran Injection) 8 mg IVPB Q8H PRN PRN Reason: NAUSEA Potassium Chloride (K-Dur -) 20 meq PO DAILY [facility] Last Admin: 12/13/18 09:00 Dose: 20 meq - Objective Vital Signs: Vital Signs Temperature 98.5 F 12/14/18 06:00 Pulse Rate 61 12/14/18 06:00 Respiratory Rate 18 12/14/18 06:00 Blood Pressure 166/70 12/14/18 06:00 O2 Sat by Pulse Oximetry (%) 95 12/13/18 21:00 Constitutional: Yes: No Distress, Calm Eyes: Yes: Conjunctiva Clear HENT: Yes: Atraumatic Neck: Yes: Supple Cardiovascular: Yes: Regular Rate and Rhythm Respiratory: Yes: CTA Bilaterally Gastrointestinal: Yes: Soft. No: Tenderness Genitourinary: No: CVA Tenderness - Left, CVA Tenderness - Right Musculoskeletal: No: Joint Stiffness, Joint Swelling Extremities: No: Cold, Cool, Cyanosis Edema: No Integumentary: Yes: Rash (R medial elbow see above). No: Venous Stasis Changes Neurological: Yes: WNL, Alert, Oriented ...Motor Strength: WNL Psychiatric: Yes: WNL, Alert, Oriented. No: Agitated, Suicidal Ideation Labs: CBC, BMP 12/14/18 05:30 12/14/18 05:30 INR, PTT INR 1.02 (0.83-1.09) 12/12/18 18:33 - ....Imaging Other: Report Reviewed Assessment/Plan Patient is 83F with history of DM, CABG, vertigo and HTN admitted with pancreatitis - gallstones, pending MRCP r/o biliary obstruction / malignancy; tolerated fluid diet po, no N/V/D/ abdominal pain; decrease IVF f/u labs no antibiotics for now (NL WBC, NL temp) GI and surgery f/u ice and warm compresses to R elbow, bacitracin, close OBS, if not better in 24H or if worse phlebitis to start ATB cardiology eval for cardiac clearance in case she needs surgery BP and GLU / DM control DVT pfx falls pfx d/w pt do not get OOB alone, call for help if needs OOB
[2018-12-14] MEDS ORDERED: MAGNESIUM SULF 50% (8.12 MEQ/2 ML-1 GM VIAL) IVPB ONE (08:43)
--- NOTE | 2018-12-14 09:45 | EKG ---
Test Reason : Blood Pressure : / mmHG Vent. Rate : 062 BPM Atrial Rate : 062 BPM P-R Int : 124 ms QRS Dur : 076 ms QT Int : 424 ms P-R-T Axes : 054 016 037 degrees QTc Int : 430 ms NORMAL SINUS RHYTHM ANTERIOR INFARCT , AGE UNDETERMINED ABNORMAL ECG NO PREVIOUS ECGS AVAILABLE Confirmed by ELIDIA LOWE, VIVIAN ([id number]) on 12/14/2018 9:45:29 AM Referred By: SAUL العراقي DR Confirmed By:VIVIAN BRENNER MD
[2018-12-14] MEDS: FOLIC ACID 1 MG TABLET (FP) PO SCH (10:39)
[2018-12-14] MEDS: amLODIPine BESYLATE 5 MG TABLET (FP) PO SCH (10:39)
[2018-12-14] MEDS: LISINOPRIL 5 MG TABLET (FP) PO SCH (10:39)
[2018-12-14] MEDS: HEPARIN NA (PORCINE) 5,000 UNITS/ML 1ML VIAL SQ SCH ×2 (10:39→21:28)
[2018-12-14] MEDS: ESCITALOPRAM OXALATE 10 MG TABLET (FP) PO SCH (10:39)
[2018-12-14] MEDS: METOPROLOL TARTRATE 25 MG TABLET (FP) PO SCH ×2 (10:39→21:28)
[2018-12-14] MEDS: POTASSIUM CHLORIDE TABS 20 MEQ TABLET.ER (FP) PO SCH (10:39)
--- NOTE | 2018-12-14 11:36 | PN ---
Progress Note (short form) - Note Progress Note: GI brief chart review Vitals stable Hepatic Panel Total Bilirubin 0.5 mg/dL (0.2-1) 12/14/18 05:30 Direct Bilirubin 0.1 mg/dL (0.0-0.2) 12/13/18 06:45 AST 83 U/L (15-37) H 12/14/18 05:30 ALT 108 U/L (13-61) H 12/14/18 05:30 Alkaline Phosphatase 226 U/L (45-117) H 12/14/18 05:30 Albumin 3.1 g/dl (3.4-5.0) L 12/14/18 05:30 CBC, BMP 12/14/18 05:30 12/14/18 05:30 Acute pancreatitis - r/o gallstone pancreatitis Await MRI/MRCP Daily LFTs until normal
[2018-12-14] MEDS ORDERED: LORazepam 1 MG TABLET PO ONE (14:15)
--- NOTE | 2018-12-14 15:08 | PN ---
Progress Note, Physician History of Present Illness: The patient is an 83 year old female with a significant PMH of coronary heart disease (s/pMI; CABG 2009), COPD (stopped heavy smoking habit at time of CABG) , diastolic CHF, HTN, pulmonary HTN, DM, hyperllipidemia, s/p total hip replacement, vertigo, who presents to the emergency department today complaining of abdominal pain, nausea, vomit, and diarrhea for 2 days. Patient reports epigastric abdominal pain, multiple episodes of NBNB emesis, and watery stool. Patient endorses going to [place] yesterday for these issues, and had CT abdomen/pelvis with gallstones and elevated lipase (>5000). Patient saw her PCP earlier today, who advised she comes to the ER for admission of pancreatitis. Patient endorses feeling slightly better while in the ED, and denies being nauseous at this time. - Current Medication List Current Medications: Active Medications Amlodipine Besylate (Norvasc -) 5 mg PO DAILY [facility] Last Admin: 12/14/18 10:39 Dose: 5 mg Atorvastatin Calcium (Lipitor -) 40 mg PO HS [facility] Last Admin: 12/13/18 22:09 Dose: 40 mg Escitalopram Oxalate (Lexapro -) 10 mg PO DAILY [facility] Last Admin: 12/14/18 10:39 Dose: 10 mg Folic Acid (Folic Acid -) 1 mg PO DAILY [facility] Last Admin: 12/14/18 10:39 Dose: 1 mg Heparin Sodium (Porcine) (Heparin -) 5,000 unit SQ BID [facility] Last Admin: 12/14/18 10:39 Dose: 5,000 unit Potassium Chloride 10 meq/ (Dextrose/Sodium Chloride) 1,005 mls @ 100 mls/hr IVPB Q10H [facility] Last Admin: 12/14/18 10:39 Dose: 100 mls/hr Insulin Aspart (Novolog Vial) 6 units SQ HS [facility] Last Admin: 12/13/18 22:12 Dose: 6 units Insulin Aspart (Novolog Vial Sliding Scale -) 1 vial SQ ACHS [facility]; Protocol Last Admin: 12/14/18 12:30 Dose: 4 units Insulin Detemir (Levemir Vial) 10 units SQ DAILY@0700 [facility] Last Admin: 12/14/18 06:33 Dose: 10 units Lisinopril (Prinivil) 5 mg PO DAILY [facility] Last Admin: 12/14/18 10:39 Dose: 5 mg Meclizine HCl (Antivert -) 12.5 mg PO Q12H PRN PRN Reason: VERTIGO Last Admin: 12/13/18 22:18 Dose: 12.5 mg Metoprolol Tartrate (Lopressor -) 12.5 mg PO BID [facility] Last Admin: 12/14/18 10:39 Dose: 12.5 mg Morphine Sulfate (Morphine Sulfate) 1 mg IVPUSH Q4H PRN PRN Reason: PAIN LEVEL 7 - 10 Last Admin: 12/13/18 09:45 Dose: 1 mg Ondansetron HCl (Zofran Injection) 8 mg IVPB Q8H PRN PRN Reason: NAUSEA Potassium Chloride (K-Dur -) 20 meq PO DAILY [facility] Last Admin: 12/14/18 10:39 Dose: 20 meq - Objective Vital Signs: Vital Signs Temperature 98.4 F 12/14/18 15:00 Pulse Rate 66 12/14/18 15:00 Respiratory Rate 20 12/14/18 15:00 Blood Pressure 150/66 12/14/18 15:00 O2 Sat by Pulse Oximetry (%) 95 12/13/18 21:00 Labs: CBC, BMP 12/14/18 05:30 12/14/18 05:30 INR, PTT INR 1.02 (0.83-1.09) 12/12/18 18:33 Assessment/Plan Problems (1) COPD (chronic obstructive pulmonary disease) Code(s): J44.9 - CHRONIC OBSTRUCTIVE PULMONARY DISEASE, UNSPECIFIED (2) HTN (hypertension) Assessment/Plan: On lisinopril and metoprolol ER. Code(s): I10 - ESSENTIAL (PRIMARY) HYPERTENSION (3) Diabetes Code(s): E11.9 - TYPE 2 DIABETES MELLITUS WITHOUT COMPLICATIONS (4) History of left hip replacement Code(s): Z96.642 - PRESENCE OF LEFT ARTIFICIAL HIP JOINT (5) S/P CABG (coronary artery bypass graft) Code(s): Z95.1 - PRESENCE OF AORTOCORONARY BYPASS GRAFT (6) Diastolic CHF Code(s): I50.30 - UNSPECIFIED DIASTOLIC (CONGESTIVE) HEART FAILURE (7) Gallstone pancreatitis Code(s): K85.10 - BILIARY ACUTE PANCREATITIS WITHOUT NECROSIS OR INFECTION (8) Hypokalemia Code(s): E87.6 - HYPOKALEMIA (9) Hypomagnesemia Assessment/Plan: Mg level 1.3 today. Give 4 g magnesium sulfate IVPB; keep level 2.0-2.4. Code(s): E83.42 - HYPOMAGNESEMIA
[2018-12-14] MEDS: ATORVASTATIN CA 40 MG TABLET (FP) PO SCH (21:28)
[2018-12-14] MEDS: BACITRACIN 15 GM TUBE TOPICAL OINTMENT TP SCH (21:28)
[2018-12-14] MEDS: INSULIN (NOVOLOG) ASPART 100 UNITS/ML 10ML VIAL SQ SCH (21:29)
[2018-12-15] MEDS: POTASSIUM CHLORIDE 10 MEQ in DEXTROSE 5%-NORMAL SALINE 1,000 ML IVPB SCH ×3 (02:48→22:22)
[2018-12-15] MEDS: INSULIN (LEVEMIR) 100 UNITS/ML UNITS SQ SCH (06:04)
[2018-12-15] MEDS: INSULIN SLIDING SCALE (NOVOLOG) 1 VIAL SQ SCH ×4 (06:04→22:21)
[2018-12-15 06:30] LABS: BASO % 0.7 % (0-2.0); EOS % 1.4 % (0-4.5); HEMATOCRIT 33.4 % (32.4-45.2); HEMOGLOBIN 11.3 GM/dL (10.7-15.3); LYMPH % 23.4 % (8-40); MCH 30.4 pg (25.7-33.7); MCHC 33.8 g/dl (32.0-36.0); MEAN CELL VOLUME 89.9 fl (80-96); MONO % 8.5 % (3.8-10.2); PLATELET COUNT 300 K/MM3 (134-434); RBC 3.71 M/mm3 (3.60-5.2); RDW 15.6 % (11.6-15.6); WHITE BLOOD COUNT 4.3 K/mm3 (4.0-10.0)
[2018-12-15 06:51] LABS: BILIRUBIN,TOTAL 0.5 mg/dL (0.2-1); CALCIUM 9.5 mg/dL (8.5-10.1); CREATININE 0.8 mg/dL (0.55-1.3); POTASSIUM 4.3 mmol/L (3.5-5.1); TOT PROT 6.4 g/dl (6.4-8.2)
--- NOTE | 2018-12-15 08:59 | PN ---
Progress Note, Physician Chief Complaint: feels better no N/V/D less pain - Current Medication List Current Medications: Active Medications Amlodipine Besylate (Norvasc -) 5 mg PO DAILY [facility] Last Admin: 12/14/18 10:39 Dose: 5 mg Atorvastatin Calcium (Lipitor -) 40 mg PO HS [facility] Last Admin: 12/14/18 21:28 Dose: 40 mg Bacitracin (Bacitracin -) 1 applic TP BID [facility] Last Admin: 12/14/18 21:28 Dose: 1 applic Escitalopram Oxalate (Lexapro -) 10 mg PO DAILY [facility] Last Admin: 12/14/18 10:39 Dose: 10 mg Folic Acid (Folic Acid -) 1 mg PO DAILY [facility] Last Admin: 12/14/18 10:39 Dose: 1 mg Heparin Sodium (Porcine) (Heparin -) 5,000 unit SQ BID [facility] Last Admin: 12/14/18 21:28 Dose: 5,000 unit Potassium Chloride 10 meq/ (Dextrose/Sodium Chloride) 1,005 mls @ 50 mls/hr IVPB Q10H [facility] Last Admin: 12/15/18 02:48 Dose: 50 mls/hr Insulin Aspart (Novolog Vial) 6 units SQ HS [facility] Last Admin: 12/14/18 21:29 Dose: Not Given Insulin Aspart (Novolog Vial Sliding Scale -) 1 vial SQ [facility]; Protocol Last Admin: 12/15/18 06:04 Dose: Not Given Insulin Detemir (Levemir Vial) 10 units SQ DAILY@0700 [facility] Last Admin: 12/15/18 06:04 Dose: 10 units Lisinopril (Prinivil) 5 mg PO DAILY [facility] Last Admin: 12/14/18 10:39 Dose: 5 mg Meclizine HCl (Antivert -) 12.5 mg PO Q12H PRN PRN Reason: VERTIGO Last Admin: 12/13/18 22:18 Dose: 12.5 mg Metoprolol Tartrate (Lopressor -) 12.5 mg PO BID [facility] Last Admin: 12/14/18 21:28 Dose: 12.5 mg Morphine Sulfate (Morphine Sulfate) 1 mg IVPUSH Q4H PRN PRN Reason: PAIN LEVEL 7 - 10 Last Admin: 12/13/18 09:45 Dose: 1 mg Ondansetron HCl (Zofran Injection) 8 mg IVPB Q8H PRN PRN Reason: NAUSEA Potassium Chloride (K-Dur -) 20 meq PO DAILY [facility] Last Admin: 12/14/18 10:39 Dose: 20 meq - Objective Vital Signs: Vital Signs Temperature 98.6 F 12/15/18 06:00 Pulse Rate 66 12/15/18 06:00 Respiratory Rate 18 12/15/18 06:00 Blood Pressure 145/85 12/15/18 06:00 O2 Sat by Pulse Oximetry (%) 97 12/14/18 09:00 Constitutional: Yes: No Distress, Calm Eyes: Yes: Conjunctiva Clear HENT: Yes: Atraumatic Neck: Yes: Supple Cardiovascular: Yes: Regular Rate and Rhythm Respiratory: Yes: CTA Bilaterally Gastrointestinal: Yes: Soft. No: Tenderness Genitourinary: No: CVA Tenderness - Left, CVA Tenderness - Right Musculoskeletal: No: Joint Stiffness, Joint Swelling Extremities: No: Cold, Cool, Cyanosis Edema: No Integumentary: No: Rash, Venous Stasis Changes Neurological: Yes: WNL, Alert, Oriented ...Motor Strength: WNL Psychiatric: Yes: WNL, Alert, Oriented. No: Agitated, Suicidal Ideation Labs: CBC, BMP 12/15/18 05:20 12/15/18 05:20 INR, PTT INR 1.02 (0.83-1.09) 12/12/18 18:33 - ....Imaging Other: Report Reviewed Assessment/Plan Patient is 83F with history of DM, CABG, vertigo and HTN admitted with pancreatitis - gallstones, MRCP biliary duct prominence needs ERCP 2D echo, CXR noted; d/w cardiology dr Oliveros no absolute contraindications for ERCP and / or cholecystectomy GI and surgerybf/u ice and warm compresses to R elbow, bacitracin, better today BP and GLU / DM control DVT pfx; hold heparin sq in am pre ERCP falls pfx d/w pt do not get OOB alone, call for help if needs OOB d/w pt and pt's daughter all the above
[2018-12-15] MEDS: HEPARIN NA (PORCINE) 5,000 UNITS/ML 1ML VIAL SQ SCH (09:58)
[2018-12-15] MEDS: ESCITALOPRAM OXALATE 10 MG TABLET (FP) PO SCH (09:58)
[2018-12-15] MEDS: LISINOPRIL 5 MG TABLET (FP) PO SCH (09:58)
[2018-12-15] MEDS: FOLIC ACID 1 MG TABLET (FP) PO SCH (09:58)
[2018-12-15] MEDS: amLODIPine BESYLATE 5 MG TABLET (FP) PO SCH (09:58)
[2018-12-15] MEDS: METOPROLOL TARTRATE 25 MG TABLET (FP) PO SCH ×2 (09:58→22:22)
[2018-12-15] MEDS: BACITRACIN 15 GM TUBE TOPICAL OINTMENT TP SCH ×2 (09:58→22:22)
--- NOTE | 2018-12-15 12:22 | ECHO ---
Name: VITA, LARA Exam:Adult Echocardiogram Study Date: 12/15/2018 09:59 AM Age: 83 yrs Reason For Study: ASHD CABG Height: 60 in Weight: 107 lb BSA: 1.4 m2 MMode/2D Measurements & Calculations IVSd: 1.2 cm Ao root diam: 2.3 cm LVIDd: 3.4 cm LA dimension: 3.4 cm LVIDs: 2.2 cm LVPWd: 1.1 cm EDV(Teich): 47.5 ml LVOT diam: 2.0 cm ESV(Teich): 17.0 ml LAV (MOD-bp): 40.0 ml Doppler Measurements & Calculations MV E max heriberto: 89.2 cm/sec Ao V2 max: 158.8 cm/sec MV A max heriberto: 142.2 cm/sec Ao max P.1 mmHg MV E/A: 0.63 AI P1/2t: 849.9 msec MV dec time: 0.27 sec EVETTE(V,D): 1.9 cm2 AI max heriberto: 167.0 cm/sec LV V1 max P.0 mmHg AI max P.1 mmHg LV V1 max: 99.4 cm/sec AI dec slope: 57.5 cm/sec2 MR max heriberto: 413.2 cm/sec TR max heriberto: 242.1 cm/sec MR max P.3 mmHg TR max P.5 mmHg PA V2 max: 112.7 cm/sec Med Peak E' Heriberto: 5.0 cm/sec PA max P.1 mmHg Med E/e': 17.8 Lat Peak E' Heriberto: 6.7 cm/sec Lat E/e': 13.2 PI Vmax: 112.0 cm/sec Procedure A two-dimensional transthoracic echocardiogram with color flow and Doppler was performed. The patient was in normal sinus rhythm during the exam. Left Ventricle There is mild concentric left ventricular hypertrophy. Left ventricular systolic function is normal. Ejection Fraction = 65%. E/A reversal consistent with but not diagnostic of poor LV compliance. Right Ventricle The right ventricle is normal size. The right ventricular systolic function is normal. Atria Normal left and right atrial size and function. Mitral Valve There is moderate mitral annular calcification. The mitral valve is normal. There is mild mitral regurgitation. Tricuspid Valve The tricuspid valve is normal. There is mild tricuspid regurgitation. Right ventricular systolic pres sure is normal. Aortic Valve There is mild aortic sclerosis.;. The aortic valve opens well. The aortic valve is trileaflet. No hemodynamically significant valvular aortic stenosis. Trace aortic regurgitation. Pulmonic Valve The pulmonic valve leaflets are thin and pliable; valve motion is normal. Trace pulmonic valvular regurgitation. Great Vessels The aortic root is normal size. Pericardium/Pleura There is no pericardial effusion. Interpretation Summary There is mild concentric left ventricular hypertrophy. Left ventricular systolic function is normal. E/A reversal consistent with but not diagnostic of poor LV compliance The right ventricular systolic function is normal. There is moderate mitral annular calcification. There is mild mitral regurgitation. There is mild tricuspid regurgitation. There is mild aortic sclerosis.; Trace aortic regurgitation. Trace pulmonic valvular regurgitation. There is no pericardial effusion. MD Case Mckeon 12/15/2018 12:22 PM
--- NOTE | 2018-12-15 12:35 | PN ---
Progress Note, Physician Chief Complaint: Pt alert and oriented; sitting up at bedside, eating lunch. She asks if she is going to have (abdominal) surgery. Denies chest pain or dyspnea. Grandaughter at bedside. History of Present Illness: The patient is an 83 year old female with a significant PMH of coronary heart disease (s/pMI; CABG 2009), COPD (stopped heavy smoking habit at time of CABG) , diastolic CHF, HTN, pulmonary HTN, DM, hyperllipidemia, s/p total hip replacement, vertigo, who presents to the emergency department today complaining of abdominal pain, nausea, vomit, and diarrhea for 2 days. Patient reports epigastric abdominal pain, multiple episodes of NBNB emesis, and watery stool. Patient endorses going to [place] yesterday for these issues, and had CT abdomen/pelvis with gallstones and elevated lipase (>5000). Patient saw her PCP earlier today, who advised she comes to the ER for admission of pancreatitis. Patient endorses feeling slightly better while in the ED, and denies being nauseous at this time. - Current Medication List Current Medications: Active Medications Amlodipine Besylate (Norvasc -) 5 mg PO DAILY [facility] Last Admin: 12/15/18 09:58 Dose: 5 mg Atorvastatin Calcium (Lipitor -) 40 mg PO HS [facility] Last Admin: 12/14/18 21:28 Dose: 40 mg Bacitracin (Bacitracin -) 1 applic TP BID [facility] Last Admin: 12/15/18 09:58 Dose: 1 applic Escitalopram Oxalate (Lexapro -) 10 mg PO DAILY [facility] Last Admin: 12/15/18 09:58 Dose: 10 mg Folic Acid (Folic Acid -) 1 mg PO DAILY [facility] Last Admin: 12/15/18 09:58 Dose: 1 mg Heparin Sodium (Porcine) (Heparin -) 5,000 unit SQ BID [facility] Last Admin: 12/15/18 09:58 Dose: 5,000 unit Potassium Chloride 10 meq/ (Dextrose/Sodium Chloride) 1,005 mls @ 50 mls/hr IVPB Q10H [facility] Last Admin: 12/15/18 11:54 Dose: Not Given Insulin Aspart (Novolog Vial) 6 units SQ HS [facility] Last Admin: 12/14/18 21:29 Dose: Not Given Insulin Aspart (Novolog Vial Sliding Scale -) 1 vial SQ [facility]; Protocol Last Admin: 12/15/18 11:57 Dose: 6 units Insulin Detemir (Levemir Vial) 10 units SQ DAILY@0700 [facility] Last Admin: 12/15/18 06:04 Dose: 10 units Lisinopril (Prinivil) 5 mg PO DAILY [facility] Last Admin: 12/15/18 09:58 Dose: 5 mg Meclizine HCl (Antivert -) 12.5 mg PO Q12H PRN PRN Reason: VERTIGO Last Admin: 12/13/18 22:18 Dose: 12.5 mg Metoprolol Tartrate (Lopressor -) 12.5 mg PO BID [facility] Last Admin: 12/15/18 09:58 Dose: 12.5 mg Morphine Sulfate (Morphine Sulfate) 1 mg IVPUSH Q4H PRN PRN Reason: PAIN LEVEL 7 - 10 Last Admin: 12/13/18 09:45 Dose: 1 mg Ondansetron HCl (Zofran Injection) 8 mg IVPB Q8H PRN PRN Reason: NAUSEA - Objective Vital Signs: Vital Signs Temperature 98.0 F 12/15/18 10:00 Pulse Rate 64 12/15/18 10:00 Respiratory Rate 18 12/15/18 10:00 Blood Pressure 153/74 12/15/18 10:00 O2 Sat by Pulse Oximetry (%) 97 12/14/18 09:00 Constitutional: Yes: Calm Eyes: Yes: WNL HENT: Yes: WNL Neck: Yes: WNL Cardiovascular: Yes: WNL, S1, S2, S4 Respiratory: Yes: Regular Gastrointestinal: Yes: Soft ...Rectal Exam: Yes: Deferred Genitourinary: No: Anuria Breast(s): Yes: WNL Musculoskeletal: Yes: Muscle Weakness Extremities: Yes: WNL Edema: No Peripheral Pulses WNL: Yes Integumentary: Yes: WNL Psychiatric: Yes: Alert, Oriented Labs: CBC, BMP 12/15/18 05:20 12/15/18 05:20 INR, PTT INR 1.02 (0.83-1.09) 12/12/18 18:33 Abnormal Lab Results 12/15/18 05:20 Anion Gap 4 L BUN 4 L Random Glucose 152 H ALT 70 H Alkaline Phosphatase 199 H Albumin 3.0 L Abnormal Lab Results 12/15/18 05:20 Anion Gap 4 L BUN 4 L Random Glucose 152 H ALT 70 H Alkaline Phosphatase 199 H Albumin 3.0 L - ....Imaging Chest X-ray: Image Reviewed (no acute pathology) EKG: Image Reviewed Problem List - Problems (1) COPD (chronic obstructive pulmonary disease) Code(s): J44.9 - CHRONIC OBSTRUCTIVE PULMONARY DISEASE, UNSPECIFIED (2) HTN (hypertension) Assessment/Plan: On lisinopril, amlodipine, and metoprolol tartrate. Code(s): I10 - ESSENTIAL (PRIMARY) HYPERTENSION (3) Diabetes Code(s): E11.9 - TYPE 2 DIABETES MELLITUS WITHOUT COMPLICATIONS (4) History of left hip replacement Code(s): Z96.642 - PRESENCE OF LEFT ARTIFICIAL HIP JOINT (5) S/P CABG (coronary artery bypass graft) Assessment/Plan: s/p [place]-->CABG 2009; Stress MIBI negative for ischemia 2011. Code(s): Z95.1 - PRESENCE OF AORTOCORONARY BYPASS GRAFT (6) Diastolic CHF Assessment/Plan: on lisinopril , amlodipine, and metoprolol. F/u BUN/Cr, electrolytes, Is and Os, and daily weight. Code(s): I50.30 - UNSPECIFIED DIASTOLIC (CONGESTIVE) HEART FAILURE (7) Gallstone pancreatitis Assessment/Plan: US: gallstones; dilated CBD. From a cardiac perspective, there are no absolute contraindications for Ms. Capone to undergo cholecystectomy. Code(s): K85.10 - BILIARY ACUTE PANCREATITIS WITHOUT NECROSIS OR INFECTION (8) Hypokalemia Assessment/Plan: replete all electrolytes: Keep K 4.0-4.5 Keep Mg 2-2.4 Keep PO4 2.5-4.9 Code(s): E87.6 - HYPOKALEMIA (9) Hypomagnesemia Assessment/Plan: Keep Mg level 2.0-2.4. Code(s): E83.42 - HYPOMAGNESEMIA
--- NOTE | 2018-12-15 19:06 | PN.GI ---
GI Progress Note Subjective: GI NOte: Events noted. MRCP reviewed. NO obvious pancreatic mass seen. No pancreatic duct dilation. Fluctuation alkaline phosphatase suggests bobbing CBD stones or sludge. Her recent history strongly suggests biliary pancreatittis due to choledocholithiasis. I have discussed the situation with the patient with her daughter Ingrid serving as the polysomnography tech. I have advised an EECP to extract the stones and/or to stent a possible distal CBD stricture. I have discussed the potential for such complications as perforation , hemorrhage and ERCP induced pancreatitis leading to multiorgan failure. The patient and her daughter have mutually consented. - Objective Vital Signs: Vital Signs Temperature 99.2 F 12/15/18 17:05 Pulse Rate 64 12/15/18 17:05 Respiratory Rate 17 12/15/18 17:05 Blood Pressure 157/75 12/15/18 17:05 O2 Sat by Pulse Oximetry (%) 97 12/15/18 09:00 Laboratory Tests 12/12/18 12/15/18 12/15/18 18:33 05:20 05:20 WBC 4.3 Plt Count 300 PT with INR 12.00 Total Bilirubin 0.5 AST 33 ALT 70 H Alkaline Phosphatase 199 H Lipase 152 Constitutional: Anxious Gastrointestinal Inspection: Yes: WNL ...Auscultate: Yes: Normoactive Bowel Sounds ...Palpate: Yes: Soft, Other (nontender) Labs: CBC, BMP 12/15/18 05:20 12/15/18 05:20 INR, PTT INR 1.02 (0.83-1.09) 12/12/18 18:33 Assessment/Plan Impression Biliary pancreatitis due to repeated CBD stone passage with suspected residual CBD stones and/or sludge. Plan: Consent obtained, ERCP scheduled for tomorrow Dr Lam informed Will order antibiotics Problem List - Problems (1) Dilated bile duct Code(s): K83.8 - OTHER SPECIFIED DISEASES OF BILIARY TRACT (2) Abnormal LFTs Code(s): R94.5 - ABNORMAL RESULTS OF LIVER FUNCTION STUDIES (3) Colon polyps Code(s): K63.5 - POLYP OF COLON (4) COPD (chronic obstructive pulmonary disease) Code(s): J44.9 - CHRONIC OBSTRUCTIVE PULMONARY DISEASE, UNSPECIFIED (5) Diabetes Code(s): E11.9 - TYPE 2 DIABETES MELLITUS WITHOUT COMPLICATIONS (6) Diastolic CHF Code(s): I50.30 - UNSPECIFIED DIASTOLIC (CONGESTIVE) HEART FAILURE (7) Gallstone pancreatitis Code(s): K85.10 - BILIARY ACUTE PANCREATITIS WITHOUT NECROSIS OR INFECTION
[2018-12-15] MEDS ORDERED: SODIUM CHLORIDE 100 ML IVPB ONE (20:34)
[2018-12-15] MEDS ORDERED: AMPICILLIN NA/SULBACTAM NA 1.5 GM VIAL ONE (20:34)
[2018-12-15] MEDS ORDERED: PT OWN MED DRAWER 7, Y5N ONE (20:38)
[2018-12-15] MEDS: AMPICILLIN NA/SULBACTAM NA 1.5 GM in SODIUM CHLORIDE 100 ML IVPB SCH (20:46)
[2018-12-15] MEDS: INSULIN (NOVOLOG) ASPART 100 UNITS/ML 10ML VIAL SQ SCH (22:22)
[2018-12-15] MEDS: ATORVASTATIN CA 40 MG TABLET (FP) PO SCH (22:23)
[2018-12-16] MEDS ORDERED: AMPICILLIN NA/SULBACTAM NA 1.5 GM VIAL ONE ×2 (01:18→09:18)
[2018-12-16] MEDS ORDERED: SODIUM CHLORIDE 100 ML IVPB ONE ×2 (01:19→09:18)
[2018-12-16] MEDS: AMPICILLIN NA/SULBACTAM NA 1.5 GM in SODIUM CHLORIDE 100 ML IVPB SCH ×2 (01:23→09:21)
[2018-12-16] MEDS: INSULIN (LEVEMIR) 100 UNITS/ML UNITS SQ SCH (06:21)
[2018-12-16] MEDS: INSULIN SLIDING SCALE (NOVOLOG) 1 VIAL SQ SCH ×4 (06:21→22:52)
[2018-12-16 06:54] LABS: BASO % 0.9 % (0-2.0); EOS % 1.7 % (0-4.5); HEMATOCRIT 32.6 % (32.4-45.2); HEMOGLOBIN 10.9 GM/dL (10.7-15.3); LYMPH % 29.2 % (8-40); MCH 30.4 pg (25.7-33.7); MCHC 33.5 g/dl (32.0-36.0); MEAN CELL VOLUME 90.7 fl (80-96); MEAN PLT VOLUME 8.2 fl (7.5-11.1); MONO % 9.3 % (3.8-10.2); NEUT % 58.9 % (42.8-82.8); PLATELET COUNT 297 K/MM3 (134-434); WHITE BLOOD COUNT 3.7 K/mm3 (4.0-10.0)
[2018-12-16] MEDS: POTASSIUM CHLORIDE 10 MEQ in DEXTROSE 5%-NORMAL SALINE 1,000 ML IVPB SCH ×2 (07:53→18:06)
[2018-12-16 08:16] LABS: ALBUMIN 2.8 g/dl (3.4-5.0); BILIRUBIN,TOTAL 0.5 mg/dL (0.2-1); CREATININE 0.8 mg/dL (0.55-1.3); POTASSIUM 4.4 mmol/L (3.5-5.1); TOT PROT 6.2 g/dl (6.4-8.2)
--- NOTE | 2018-12-16 12:12 | PN ---
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; dw pt's daughter, # for dr Hoffman at [facility] given to her to call for further management - Current Medication List Current Medications: Active Medications Amlodipine Besylate (Norvasc -) 5 mg PO DAILY [facility] Last Admin: 12/15/18 09:58 Dose: 5 mg Atorvastatin Calcium (Lipitor -) 40 mg PO HS [facility] Last Admin: 12/15/18 22:23 Dose: 40 mg Bacitracin (Bacitracin -) 1 applic TP BID [facility] Last Admin: 12/15/18 22:22 Dose: 1 applic Escitalopram Oxalate (Lexapro -) 10 mg PO DAILY [facility] Last Admin: 12/15/18 09:58 Dose: 10 mg Folic Acid (Folic Acid -) 1 mg PO DAILY [facility] Last Admin: 12/15/18 09:58 Dose: 1 mg Potassium Chloride 10 meq/ (Dextrose/Sodium Chloride) 1,005 mls @ 50 mls/hr IVPB Q10H [facility] Last Admin: 12/16/18 07:53 Dose: Not Given Ampicillin Sodium/Sulbactam (Sodium 1.5 gm/ Sodium Chloride) 100 mls @ 200 mls/ hr IVPB Q8H-IV [facility] Metronidazole (Flagyl 250mg Premixed Ivpb -) 250 mg in 50 mls @ 50 mls/hr IVPB Q8H-IV [facility] Last Admin: 12/16/18 10:34 Dose: Not Given Insulin Aspart (Novolog Vial) 6 units SQ [facility] Last Admin: 12/15/18 22:22 Dose: 6 units Insulin Aspart (Novolog Vial Sliding Scale -) 1 vial SQ [facility]; Protocol Last Admin: 12/16/18 06:21 Dose: Not Given Insulin Detemir (Levemir Vial) 10 units SQ DAILY@0700 [facility] Last Admin: 12/16/18 06:21 Dose: Not Given Lisinopril (Prinivil) 5 mg PO DAILY [facility] Last Admin: 12/15/18 09:58 Dose: 5 mg Meclizine HCl (Antivert -) 12.5 mg PO Q12H PRN PRN Reason: VERTIGO Last Admin: 12/13/18 22:18 Dose: 12.5 mg Metoprolol Tartrate (Lopressor -) 12.5 mg PO BID [facility] Last Admin: 12/15/18 22:22 Dose: 12.5 mg Morphine Sulfate (Morphine Sulfate) 1 mg IVPUSH Q4H PRN PRN Reason: PAIN LEVEL 7 - 10 Last Admin: 12/13/18 09:45 Dose: 1 mg Ondansetron HCl (Zofran Injection) 8 mg IVPB Q8H PRN PRN Reason: NAUSEA - Objective Vital Signs: Vital Signs Temperature 98.2 F 12/16/18 10:00 Pulse Rate 65 12/16/18 10:00 Respiratory Rate 18 12/16/18 10:00 Blood Pressure 142/61 12/16/18 10:00 O2 Sat by Pulse Oximetry (%) 96 12/15/18 21:00 Constitutional: Yes: No Distress, Calm Eyes: Yes: Conjunctiva Clear HENT: Yes: Atraumatic Neck: Yes: Supple Cardiovascular: Yes: Regular Rate and Rhythm Respiratory: Yes: CTA Bilaterally Gastrointestinal: Yes: Soft. No: Tenderness Genitourinary: No: CVA Tenderness - Left, CVA Tenderness - Right Musculoskeletal: No: Joint Stiffness, Joint Swelling Extremities: No: Cold, Cool, Cyanosis Edema: No Integumentary: No: Rash, Venous Stasis Changes Neurological: Yes: WNL, Alert ...Motor Strength: WNL Psychiatric: Yes: WNL, Alert. 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
--- NOTE | 2018-12-16 12:36 | PN ---
Progress Note, Physician History of Present Illness: The patient is an 83 year old female with a significant PMH of coronary heart disease (s/pMI; CABG 2009), COPD (stopped heavy smoking habit at time of CABG) , diastolic CHF, HTN, pulmonary HTN, DM, hyperllipidemia, s/p total hip replacement, vertigo, who presents to the emergency department today complaining of abdominal pain, nausea, vomit, and diarrhea for 2 days. Patient reports epigastric abdominal pain, multiple episodes of NBNB emesis, and watery stool. Patient endorses going to [place] yesterday for these issues, and had CT abdomen/pelvis with gallstones and elevated lipase (>5000). Patient saw her PCP earlier today, who advised she comes to the ER for admission of pancreatitis. Patient endorses feeling slightly better while in the ED, and denies being nauseous at this time. - Current Medication List Current Medications: Active Medications Amlodipine Besylate (Norvasc -) 5 mg PO DAILY [facility] Last Admin: 12/15/18 09:58 Dose: 5 mg Atorvastatin Calcium (Lipitor -) 40 mg PO [facility] Last Admin: 12/15/18 22:23 Dose: 40 mg Bacitracin (Bacitracin -) 1 applic TP BID [facility] Last Admin: 12/15/18 22:22 Dose: 1 applic Escitalopram Oxalate (Lexapro -) 10 mg PO DAILY [facility] Last Admin: 12/15/18 09:58 Dose: 10 mg Folic Acid (Folic Acid -) 1 mg PO DAILY [facility] Last Admin: 12/15/18 09:58 Dose: 1 mg Potassium Chloride 10 meq/ (Dextrose/Sodium Chloride) 1,005 mls @ 50 mls/hr IVPB Q10H [facility] Last Admin: 12/16/18 07:53 Dose: Not Given Ampicillin Sodium/Sulbactam (Sodium 1.5 gm/ Sodium Chloride) 100 mls @ 200 mls/ hr IVPB Q8H-IV [facility] Metronidazole (Flagyl 250mg Premixed Ivpb -) 250 mg in 50 mls @ 50 mls/hr IVPB Q8H-IV [facility] Last Admin: 12/16/18 10:34 Dose: Not Given Insulin Aspart (Novolog Vial) 6 units SQ [facility] Last Admin: 12/15/18 22:22 Dose: 6 units Insulin Aspart (Novolog Vial Sliding Scale -) 1 vial SQ [facility]; Protocol Last Admin: 12/16/18 06:21 Dose: Not Given Insulin Detemir (Levemir Vial) 10 units SQ DAILY@0700 [facility] Last Admin: 12/16/18 06:21 Dose: Not Given Lisinopril (Prinivil) 5 mg PO DAILY [facility] Last Admin: 12/15/18 09:58 Dose: 5 mg Meclizine HCl (Antivert -) 12.5 mg PO Q12H PRN PRN Reason: VERTIGO Last Admin: 12/13/18 22:18 Dose: 12.5 mg Metoprolol Tartrate (Lopressor -) 12.5 mg PO BID [facility] Last Admin: 12/15/18 22:22 Dose: 12.5 mg Morphine Sulfate (Morphine Sulfate) 1 mg IVPUSH Q4H PRN PRN Reason: PAIN LEVEL 7 - 10 Last Admin: 12/13/18 09:45 Dose: 1 mg Ondansetron HCl (Zofran Injection) 8 mg IVPB Q8H PRN PRN Reason: NAUSEA - Objective Vital Signs: Vital Signs Temperature 99.1 F 12/16/18 12:20 Pulse Rate 67 12/16/18 12:20 Respiratory Rate 17 12/16/18 12:20 Blood Pressure 180/72 H 12/16/18 12:20 O2 Sat by Pulse Oximetry (%) 100 12/16/18 12:20 Eyes: Yes: WNL, Conjunctiva Clear, EOM Intact HENT: Yes: WNL, Atraumatic, Normocephalic Neck: Yes: WNL, Supple, Trachea Midline Cardiovascular: Yes: WNL, Regular Rate and Rhythm Respiratory: Yes: WNL, Regular, CTA Bilaterally Gastrointestinal: Yes: WNL, Normal Bowel Sounds Genitourinary: Yes: WNL Musculoskeletal: Yes: WNL Extremities: Yes: WNL Edema: No Integumentary: Yes: WNL Neurological: Yes: WNL, Alert, Oriented ...Motor Strength: WNL Psychiatric: Yes: WNL Labs: CBC, BMP 12/16/18 06:00 12/16/18 06:00 INR, PTT INR 1.02 (0.83-1.09) 12/12/18 18:33 Assessment/Plan - Problems (1) COPD (chronic obstructive pulmonary disease) Code(s): J44.9 - CHRONIC OBSTRUCTIVE PULMONARY DISEASE, UNSPECIFIED (2) HTN (hypertension) Assessment/Plan: On lisinopril, amlodipine, and metoprolol tartrate. Code(s): I10 - ESSENTIAL (PRIMARY) HYPERTENSION (3) Diabetes Code(s): E11.9 - TYPE 2 DIABETES MELLITUS WITHOUT COMPLICATIONS (4) History of left hip replacement Code(s): Z96.642 - PRESENCE OF LEFT ARTIFICIAL HIP JOINT (5) S/P CABG (coronary artery bypass graft) Assessment/Plan: s/p [place]-->CABG 2009; Stress MIBI negative for ischemia 2011. Code(s): Z95.1 - PRESENCE OF AORTOCORONARY BYPASS GRAFT (6) Diastolic CHF Assessment/Plan: on lisinopril , amlodipine, and metoprolol. F/u BUN/Cr, electrolytes, Is and Os, and daily weight. Code(s): I50.30 - UNSPECIFIED DIASTOLIC (CONGESTIVE) HEART FAILURE (7) Gallstone pancreatitis Assessment/Plan: US: gallstones; dilated CBD. From a cardiac perspective, there are no absolute contraindications for Ms. Capone to undergo cholecystectomy. Code(s): K85.10 - BILIARY ACUTE PANCREATITIS WITHOUT NECROSIS OR INFECTION (8) Hypokalemia Assessment/Plan: replete all electrolytes: Keep K 4.0-4.5 Keep Mg 2-2.4 Keep PO4 2.5-4.9 Code(s): E87.6 - HYPOKALEMIA (9) Hypomagnesemia Assessment/Plan: Keep Mg level 2.0-2.4. Code(s): E83.42 - HYPOMAGNESEMIA
[2018-12-16] MEDS ORDERED: LACTATED RINGERS SOLUTION 1,000 ML/1,000 ML INFUS.BAG IV SCH ×2 (13:00→23:00)
--- NOTE | 2018-12-16 13:03 | PN ---
Progress Note (short form) - Note Progress Note: GI Procedure Note: Please see ERCP report. A long distal CBD stricture with proximal ductal dilation was found. Bulging in the duodenal wall suggests a extrinsic tumor which suggest cholangiocarcinoma or pancreatic cancer rather than a benign stricture. I discusssed thge findings with Dr Lam and with Marcy's daughter who will relay the information to her mother. I have advised seeking consultation with Dr Adam Hoffman at [facility] for cholangioscopy and possible metallic stent insertion if malignancy is confirmed. I gave his number to the daughter. Will advance diet. If tolerated can consider discharge tomorrow. Problem List - Problems (1) Dilated bile duct Code(s): K83.8 - OTHER SPECIFIED DISEASES OF BILIARY TRACT (2) Abnormal LFTs Code(s): R94.5 - ABNORMAL RESULTS OF LIVER FUNCTION STUDIES (3) Colon polyps Code(s): K63.5 - POLYP OF COLON (4) COPD (chronic obstructive pulmonary disease) Code(s): J44.9 - CHRONIC OBSTRUCTIVE PULMONARY DISEASE, UNSPECIFIED (5) Diabetes Code(s): E11.9 - TYPE 2 DIABETES MELLITUS WITHOUT COMPLICATIONS (6) Diastolic CHF Code(s): I50.30 - UNSPECIFIED DIASTOLIC (CONGESTIVE) HEART FAILURE (7) Gallstone pancreatitis Code(s): K85.10 - BILIARY ACUTE PANCREATITIS WITHOUT NECROSIS OR INFECTION
[2018-12-16] MEDS: morphine SULFATE 4 MG/ML VIAL IVPUSH PRN (13:50)
[2018-12-16] MEDS ORDERED: PT OWN MED DRAWER 7, Y5N ONE ×2 (14:04→17:32)
[2018-12-16] MEDS: METOPROLOL TARTRATE 25 MG TABLET (FP) PO SCH ×2 (14:06→22:51)
[2018-12-16] MEDS: LISINOPRIL 5 MG TABLET (FP) PO SCH (14:06)
[2018-12-16] MEDS: ESCITALOPRAM OXALATE 10 MG TABLET (FP) PO SCH (14:06)
[2018-12-16] MEDS: amLODIPine BESYLATE 5 MG TABLET (FP) PO SCH (14:06)
[2018-12-16] MEDS: FOLIC ACID 1 MG TABLET (FP) PO SCH (14:07)
[2018-12-16] MEDS: BACITRACIN 15 GM TUBE TOPICAL OINTMENT TP SCH ×2 (14:07→22:52)
[2018-12-16] MEDS ORDERED: INSULIN (NOVOLOG) ASPART 100 UNITS/ML 10ML VIAL ONE (17:38)
[2018-12-16] MEDS: ATORVASTATIN CA 40 MG TABLET (FP) PO SCH (22:51)
[2018-12-16] MEDS: INSULIN (NOVOLOG) ASPART 100 UNITS/ML 10ML VIAL SQ SCH (22:51)
[2018-12-17] MEDS ORDERED: PT OWN MED DRAWER 7, Y5N ONE ×6 (01:37→17:15)
[2018-12-17] MEDS: POTASSIUM CHLORIDE 10 MEQ in DEXTROSE 5%-NORMAL SALINE 1,000 ML IVPB SCH ×2 (05:49→15:45)
[2018-12-17] MEDS: INSULIN (LEVEMIR) 100 UNITS/ML UNITS SQ SCH (06:30)
[2018-12-17] MEDS: INSULIN SLIDING SCALE (NOVOLOG) 1 VIAL SQ SCH ×4 (06:32→21:53)
[2018-12-17] MEDS ORDERED: LACTATED RINGERS SOLUTION 1,000 ML/1,000 ML INFUS.BAG IV SCH (07:00)
--- NOTE | 2018-12-17 07:16 | PN ---
Progress Note, Physician Chief Complaint: in bed felt nauseous but no vomiting, no pain - Current Medication List Current Medications: Active Medications Amlodipine Besylate (Norvasc -) 5 mg PO DAILY [facility] Last Admin: 12/16/18 14:06 Dose: 5 mg Atorvastatin Calcium (Lipitor -) 40 mg PO HS [facility] Last Admin: 12/16/18 22:51 Dose: 40 mg Bacitracin (Bacitracin -) 1 applic TP BID [facility] Last Admin: 12/16/18 22:52 Dose: 1 applic Escitalopram Oxalate (Lexapro -) 10 mg PO DAILY [facility] Last Admin: 12/16/18 14:06 Dose: 10 mg Folic Acid (Folic Acid -) 1 mg PO DAILY [facility] Last Admin: 12/16/18 14:07 Dose: 1 mg Potassium Chloride 10 meq/ (Dextrose/Sodium Chloride) 1,005 mls @ 50 mls/hr IVPB Q10H [facility] Last Admin: 12/17/18 05:49 Dose: 50 mls/hr Ampicillin Sodium/Sulbactam (Sodium 1.5 gm/ Sodium Chloride) 100 mls @ 200 mls/ hr IVPB Q8H-IV [facility] Metronidazole (Flagyl 250mg Premixed Ivpb -) 250 mg in 50 mls @ 50 mls/hr IVPB Q8H-IV [facility] Last Admin: 12/17/18 01:47 Dose: 50 mls/hr Lactated Ringer's (Lactated Ringers Solution) 1,000 ml in 1,000 mls @ 75 mls/ hr IV ASDIR [facility] Insulin Aspart (Novolog Vial) 6 units SQ [facility] Last Admin: 12/16/18 22:51 Dose: 6 units Insulin Aspart (Novolog Vial Sliding Scale -) 1 vial SQ [facility]; Protocol Last Admin: 12/17/18 06:32 Dose: 4 units Insulin Detemir (Levemir Vial) 10 units SQ DAILY@0700 [facility] Last Admin: 12/17/18 06:30 Dose: 10 units Lisinopril (Prinivil) 5 mg PO DAILY [facility] Last Admin: 12/16/18 14:06 Dose: 5 mg Meclizine HCl (Antivert -) 12.5 mg PO Q12H PRN PRN Reason: VERTIGO Last Admin: 12/13/18 22:18 Dose: 12.5 mg Metoprolol Tartrate (Lopressor -) 12.5 mg PO BID [facility] Last Admin: 12/16/18 22:51 Dose: 12.5 mg Morphine Sulfate (Morphine Sulfate) 1 mg IVPUSH Q4H PRN PRN Reason: PAIN LEVEL 7 - 10 Last Admin: 12/16/18 13:50 Dose: 1 mg Ondansetron HCl (Zofran Injection) 8 mg IVPB Q8H PRN PRN Reason: NAUSEA Last Admin: 12/16/18 13:38 Dose: 8 mg - Objective Vital Signs: Vital Signs Temperature 98.3 F 12/17/18 06:00 Pulse Rate 67 12/17/18 06:00 Respiratory Rate 20 12/17/18 06:00 Blood Pressure 141/66 12/17/18 06:00 O2 Sat by Pulse Oximetry (%) 89 L 12/16/18 15:23 Constitutional: Yes: No Distress, Calm Eyes: Yes: Conjunctiva Clear HENT: Yes: Atraumatic Neck: Yes: Supple Cardiovascular: Yes: Regular Rate and Rhythm Respiratory: Yes: CTA Bilaterally Gastrointestinal: Yes: Soft. No: Tenderness Genitourinary: No: CVA Tenderness - Left, CVA Tenderness - Right Musculoskeletal: No: Joint Stiffness, Joint Swelling Extremities: No: Cold, Cool, Cyanosis Edema: No Integumentary: No: Rash, Venous Stasis Changes Neurological: Yes: WNL, Alert, Oriented ...Motor Strength: WNL Psychiatric: Yes: WNL, Alert, Oriented. 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
[2018-12-17 07:51] LABS: BASO % 0.4 % (0-2.0); EOS % 1.2 % (0-4.5); HEMATOCRIT 33.2 % (32.4-45.2); HEMOGLOBIN 10.9 GM/dL (10.7-15.3); LYMPH % 17.1 % (8-40); MCH 30.1 pg (25.7-33.7); MCHC 32.9 g/dl (32.0-36.0); MEAN CELL VOLUME 91.5 fl (80-96); MEAN PLT VOLUME 8.4 fl (7.5-11.1); MONO % 9.9 % (3.8-10.2); NEUT % 71.4 % (42.8-82.8); PLATELET COUNT 305 K/MM3 (134-434); RBC 3.63 M/mm3 (3.60-5.2); RDW 15.9 % (11.6-15.6); WHITE BLOOD COUNT 4.8 K/mm3 (4.0-10.0)
[2018-12-17 08:22] LABS: BILIRUBIN,DIRECT 0.1 mg/dL (0.0-0.2)
[2018-12-17 09:00] LABS: ALBUMIN 2.8 g/dl (3.4-5.0); BILIRUBIN,TOTAL 0.4 mg/dL (0.2-1); CALCIUM 8.6 mg/dL (8.5-10.1); POTASSIUM 4.1 mmol/L (3.5-5.1); TOT PROT 6.3 g/dl (6.4-8.2)
[2018-12-17] MEDS: amLODIPine BESYLATE 5 MG TABLET (FP) PO SCH (09:57)
[2018-12-17] MEDS: FOLIC ACID 1 MG TABLET (FP) PO SCH (09:57)
[2018-12-17] MEDS: ESCITALOPRAM OXALATE 10 MG TABLET (FP) PO SCH (09:57)
[2018-12-17] MEDS: METOPROLOL TARTRATE 25 MG TABLET (FP) PO SCH ×2 (09:57→21:50)
[2018-12-17] MEDS: LISINOPRIL 5 MG TABLET (FP) PO SCH (09:57)
[2018-12-17] MEDS: BACITRACIN 15 GM TUBE TOPICAL OINTMENT TP SCH ×2 (10:45→21:50)
[2018-12-17] MEDS ORDERED: INSULIN (NOVOLOG) ASPART 100 UNITS/ML 10ML VIAL ONE (12:15)
--- NOTE | 2018-12-17 12:27 | PATH ---
Cytology Non-Gynecological Report Patient Name: LARA GORMAN Med. Rec. #: [id number] /Age/Gender: 1935 (Age: 83) / F Account: [id number] Location: [facility] MED/SURG Taken: 12/16/2018 Received: 12/17/2018 Reported: 12/17/2018 Physicians: Becky Garcia M.D. Specimen(s) Received COMMON BILE DUCT BRUSHING Clinical History Common bile duct stricture, rule out cholangiocarcinoma Final Diagnosis COMMON BILE DUCT BRUSHING FOR CYTOLOGY: SATISFACTORY FOR EVALUATION. NEGATIVE FOR MALIGNANT CELLS. SMALL GLANDULAR/DUCTAL CELLS PRESENT DISPERSED SMALL SHEETS AND SMALL CLUSTERS WITH FOCAL DEGENERATIVE CHANGES. NO SIGNIFICANT CYTOLOGIC ATYPIA IDENTIFIED. Comment: Suggest clinical and endoscopic correlation. Electronically Signed Portia Xiong M.D. Gross Description Received one slide fixed in 95% alcohol. Approximately 20 cc of clear fluid with brush received in 95% alcohol. Two additional slides prepared and Pap stained. Cell block prepared.
[2018-12-17] MEDS: AMPICILLIN NA/SULBACTAM NA 1.5 GM in SODIUM CHLORIDE 100 ML IVPB SCH ×2 (12:51→17:29)
--- NOTE | 2018-12-17 16:01 | CONSULT ---
Consultation: REQUESTING PROVIDER: CONSULT REQUEST: We have been asked to medically evaluate this patient for cholangio CA HISTORY OF PRESENT ILLNESS: This is an 83 yo F with history of DM, CABG, vertigo and HTN, presented with abd pain x2w, found to have acute biliary pancreatitis. Previous CT al LH showed wall calcifications, trace pericholecystic fluid, gallbladder duct dilatation, but no definite pancreatitis or cholecystitis. underwent MRCP, which revealed long distal CBD stricture with proximal ductal dilation and bulging in the duodenal wall suggests a extrinsic tumor such as cholangiocarcinoma or pancreatic cancer. Gi consult has suggested treatment with Dr Adam Hoffman at [facility] for cholangioscopy and possible metallic stent insertion if malignancy is confirmed. REVIEW OF SYSTEMS: CONSTITUTIONAL: Absent: fever, chills HEENT: Absent: rhinorrhea, nasal congestion, throat pain CARDIOVASCULAR: Absent: chest pain, syncope, palpitations RESPIRATORY: Absent: cough, shortness of breath GASTROINTESTINAL: Absent: abdominal pain, abdominal distension, nausea, vomiting, diarrhea, constipation, melena, hematochezia GENITOURINARY: Absent: dysuria, hematuria MUSCULOSKELETAL: Absent: myalgia, arthralgia SKIN: Absent: rash, itching, pallor HEMATOLOGIC/IMMUNOLOGIC: Absent: easy bleeding, easy bruising ENDOCRINE: Absent: unexplained weight gain, unexplained weight loss NEUROLOGIC: Absent: headache, focal weakness or paresthesias PSYCHIATRIC: Absent: anxiety, depression PHYSICAL EXAMINATION Vital Signs - 24 hr 12/16/18 12/16/18 12/17/18 17:06 20:20 06:00 Temperature 99.2 F 97.8 F 98.3 F Pulse Rate 76 68 67 Respiratory 20 20 20 Rate Blood Pressure 174/77 H 146/68 141/66 O2 Sat by Pulse Oximetry (%) 12/17/18 12/17/18 12/17/18 09:00 10:00 14:45 Temperature 98.3 F 98.4 F Pulse Rate 70 64 Respiratory 20 20 20 Rate Blood Pressure 139/65 141/66 O2 Sat by Pulse 89 L Oximetry (%) GENERAL: Awake, alert, and fully oriented, in no acute distress. HEAD: Normal with no signs of trauma. EYES: extraocular movements intact, sclera anicteric, conjunctiva clear. No lid lag. EARS, NOSE, THROAT: Moist mucous membranes. NECK: supple LUNGS: Breath sounds equal, clear to auscultation bilaterally HEART: Regular rate and rhythm, normal S1 and S2 ABDOMEN: Soft, nontender, not distended, normoactive bowel sounds, no guarding, no rebound MUSCULOSKELETAL: No CVA tenderness. Laboratory Results - last 24 hr 12/16/18 12/16/18 12/17/18 17:36 20:49 06:03 WBC RBC Hgb Hct MCV MCH MCHC RDW Plt Count MPV Absolute Neuts (auto) Neutrophils % Lymphocytes % Monocytes % Eosinophils % Basophils % Nucleated RBC % Sodium Potassium Chloride Carbon Dioxide Anion Gap BUN Creatinine Est GFR (CKD-EPI)AfAm Est GFR (CKD-EPI)NonAf POC Glucometer 285 267 203 Random Glucose Calcium Total Bilirubin Direct Bilirubin AST ALT Alkaline Phosphatase C-Reactive Protein Total Protein Albumin Total Amylase Lipase 12/17/18 12/17/18 12/17/18 07:00 07:00 07:00 WBC 4.8 RBC 3.63 Hgb 10.9 Hct 33.2 MCV 91.5 MCH 30.1 MCHC 32.9 RDW 15.9 H Plt Count 305 MPV 8.4 Absolute Neuts (auto) 3.4 Neutrophils % 71.4 D Lymphocytes % 17.1 D Monocytes % 9.9 Eosinophils % 1.2 Basophils % 0.4 Nucleated RBC % 0 Sodium 135 L Potassium 4.1 Chloride 100 Carbon Dioxide 28 Anion Gap 7 L BUN 13 Creatinine 1.0 Est GFR (CKD-EPI)AfAm 60.33 Est GFR (CKD-EPI)NonAf 52.06 POC Glucometer Random Glucose 201 H Calcium 8.6 Total Bilirubin 0.4 Direct Bilirubin 0.1 AST 42 H ALT 59 Alkaline Phosphatase 166 H C-Reactive Protein 1.3 H Total Protein 6.3 L Albumin 2.8 L Total Amylase 385 H Lipase 6702 H 12/17/18 11:52 WBC RBC Hgb Hct MCV MCH MCHC RDW Plt Count MPV Absolute Neuts (auto) Neutrophils % Lymphocytes % Monocytes % Eosinophils % Basophils % Nucleated RBC % Sodium Potassium Chloride Carbon Dioxide Anion Gap BUN Creatinine Est GFR (CKD-EPI)AfAm Est GFR (CKD-EPI)NonAf POC Glucometer 340 Random Glucose Calcium Total Bilirubin Direct Bilirubin AST ALT Alkaline Phosphatase C-Reactive Protein Total Protein Albumin Total Amylase Lipase Active Medications Generic Name Dose Route Start Last Admin Trade Name Freq PRN Reason Stop Dose Admin Amlodipine Besylate 5 mg 12/12/18 12:28 12/17/18 09:57 Norvasc - PO 5 mg DAILY SHARMAINE Administration Atorvastatin Calcium 40 mg 12/12/18 22:00 12/16/18 22:51 Lipitor - PO 40 mg HS SHARMAINE Administration Bacitracin 1 applic 12/14/18 22:00 12/17/18 10:45 Bacitracin - TP 1 applic BID SHARMAINE Administration Escitalopram Oxalate 10 mg 12/12/18 10:00 12/17/18 09:57 Lexapro - PO 10 mg DAILY SHARMAINE Administration Folic Acid 1 mg 12/12/18 10:00 12/17/18 09:57 Folic Acid - PO 1 mg DAILY SHARMAINE Administration Potassium Chloride 10 meq/ 1,005 mls @ 50 mls/hr 12/14/18 16:53 12/17/18 15: 45 Dextrose/Sodium Chloride IVPB 50 mls/hr Q10H SHARMAINE Administration Ampicillin Sodium/Sulbactam 100 mls @ 200 mls/hr 12/17/18 12:00 12/17/18 12: 51 Sodium 1.5 gm/ Sodium Chloride IVPB 12/19/18 02:29 200 mls/hr Q8H-IV SHARMAINE Administration Metronidazole 250 mg in 50 mls @ 50 mls/hr 12/15/18 19:45 12/17/18 09:56 Flagyl 250mg Premixed Ivpb - IVPB 50 mls/hr Q8H-IV SHARMAINE Administration Lactated Ringer's 1,000 ml in 1,000 mls @ 75 mls/hr 12/17/18 07:00 Lactated Ringers Solution IV ASDIR SHARMAINE Insulin Aspart 6 units 12/11/18 23:00 12/16/18 22:51 Novolog Vial SQ 6 units HS SHARMAINE Administration Insulin Aspart 1 vial 12/11/18 22:45 12/17/18 12:24 Novolog Vial Sliding Scale - SQ 8 units ACHS SHARMAINE Administration Protocol Insulin Detemir 10 units 12/12/18 09:44 12/17/18 06:30 Levemir Vial SQ 10 units DAILY@0700 SHARMAINE Administration Lisinopril 5 mg 12/12/18 10:00 12/17/18 09:57 Prinivil PO 5 mg DAILY SHARMAINE Administration Meclizine HCl 12.5 mg 12/11/18 22:21 12/13/18 22:18 Antivert - PO 12.5 mg Q12H PRN Administration VERTIGO Metoprolol Tartrate 12.5 mg 12/12/18 22:00 12/17/18 09:57 Lopressor - PO 12.5 mg BID SHARMAINE Administration Morphine Sulfate 1 mg 12/11/18 22:28 12/16/18 13:50 Morphine Sulfate IVPUSH 1 mg Q4H PRN Administration PAIN LEVEL 7 - 10 Ondansetron HCl 8 mg 12/11/18 22:29 12/16/18 13:38 Zofran Injection IVPB 8 mg Q8H PRN Administration NAUSEA ASSESSMENT/PLAN: This is an 83 yo F with history of DM, CABG, vertigo and HTN, presented with abd pain x2w, found to have acute biliary pancreatitis. MRCP revealed long distal CBD stricture with proximal ductal dilation and bulging in the duodenal wall suggests a extrinsic tumor such as cholangiocarcinoma or pancreatic cancer. Acute biliary pancreatitis MRCP finding sugestive of cholangioca vs pancreatic CA DM vertigo HTN -require biopsy to confirm dx of CA and MRI abd/pelvis vs PET to stage -patient to f/u outpatient with Dr Adam Hoffman at [facility] for cholangioscopy and possible metallic stent insertion -outpatient f/u with once biopsy is done. Dispo: We will continue to follow the patient. Thank you for this consultative opportunity. Visit type - Emergency Visit Emergency Visit: Yes ED Registration Date: 12/11/18 Care time: The patient presented to the Emergency Department on the above date and was hospitalized for further evaluation of their emergent condition. - New Patient This patient is new to me today: Yes Date on this admission: 12/18/18 - Critical Care Critical Care patient: No
[2018-12-17] MEDS: ATORVASTATIN CA 40 MG TABLET (FP) PO SCH (21:51)
[2018-12-17] MEDS: INSULIN (NOVOLOG) ASPART 100 UNITS/ML 10ML VIAL SQ SCH (22:14)
[2018-12-17 22:37] VITALS: PULSE 72
--- NOTE | 2018-12-17 22:49 | PN.GI ---
GI Progress Note Subjective: GI Note: Lipase elevated but no vomiting. Tolerating diet. Cytology brushings reveal no obvious malignancy. Communicated with Dr Lam that this is not reliable and Marcy will need a choledochoscopy to exclude malignancy. GB surgery should be deferred. - Objective Vital Signs: Vital Signs Temperature 97.8 F 12/17/18 22:00 Pulse Rate 72 12/17/18 22:00 Respiratory Rate 18 12/17/18 22:00 Blood Pressure 148/72 12/17/18 22:00 O2 Sat by Pulse Oximetry (%) 94 L 12/17/18 21:00 Laboratory Tests 12/17/18 12/17/18 12/17/18 07:00 07:00 07:00 WBC 4.8 Hgb 10.9 Total Bilirubin 0.4 Direct Bilirubin 0.1 Alkaline Phosphatase 166 H C-Reactive Protein 1.3 H Total Amylase 385 H Lipase 6702 H CA 19-9 Antigen 12/17/18 07:00 WBC Hgb Total Bilirubin Direct Bilirubin Alkaline Phosphatase C-Reactive Protein Total Amylase Lipase CA 19-9 Antigen Pending Constitutional: No Distress ...Auscultate: Yes: Hypoactive Bowel Sounds ...Palpate: Yes: Soft, Other (nontender) Labs: CBC, BMP 12/17/18 07:00 12/17/18 07:00 INR, PTT INR 1.02 (0.83-1.09) 12/12/18 18:33 Assessment/Plan Impression Biliary pancreatitis resolved Elevated lipase is felt to reflect CBD manipulations. Cytology brushings reveal no obvious malignancy. . Plan: Communicated with Dr Lam that cytology is not reliable and Marcy will need a choledochoscopy to exclude malignancy. GB surgery should be deferred. If stable can consider discahrge with theplan to see Dr Adam Hoffman at [facility] to under EUS and choledochoscopy which pearl dictate what to do with the stent Problem List - Problems (1) Common bile duct stricture Assessment/Plan: Cholangiocarcinoma vs pancreatic cancer vs inflammatory stricture from repeated stone passage Code(s): K83.1 - OBSTRUCTION OF BILE DUCT (2) Dilated bile duct Code(s): K83.8 - OTHER SPECIFIED DISEASES OF BILIARY TRACT (3) Abnormal LFTs Code(s): R94.5 - ABNORMAL RESULTS OF LIVER FUNCTION STUDIES (4) Colon polyps Code(s): K63.5 - POLYP OF COLON (5) COPD (chronic obstructive pulmonary disease) Code(s): J44.9 - CHRONIC OBSTRUCTIVE PULMONARY DISEASE, UNSPECIFIED (6) Diabetes Code(s): E11.9 - TYPE 2 DIABETES MELLITUS WITHOUT COMPLICATIONS (7) Diastolic CHF Code(s): I50.30 - UNSPECIFIED DIASTOLIC (CONGESTIVE) HEART FAILURE (8) Gallstone pancreatitis Code(s): K85.10 - BILIARY ACUTE PANCREATITIS WITHOUT NECROSIS OR INFECTION
--- NOTE | 2018-12-17 23:12 | PN ---
Teaching Attending Note Name of Resident: Elena Lovelace ATTENDING PHYSICIAN STATEMENT I saw and evaluated the patient. I reviewed the resident's note and discussed the case with the resident. I agree with the resident's findings and plan as documented. ASSESSMENT AND PLAN: 83 y/o patient with CBD stricture on MRI/MRCP. No pancreatic mass /PD dilatation. Prominent central heptic and nbiliary ducts cytology negative but considered sampling error Needs further w/u at [facility] -- EUS with Discussed with Dr. Lam
[2018-12-18] MEDS: POTASSIUM CHLORIDE 10 MEQ in DEXTROSE 5%-NORMAL SALINE 1,000 ML IVPB SCH ×2 (00:53→09:52)
[2018-12-18] MEDS ORDERED: PT OWN MED DRAWER 7, Y5N ONE ×2 (01:30→09:49)
[2018-12-18] MEDS: AMPICILLIN NA/SULBACTAM NA 1.5 GM in SODIUM CHLORIDE 100 ML IVPB SCH ×2 (01:38→09:50)
[2018-12-18] MEDS: INSULIN SLIDING SCALE (NOVOLOG) 1 VIAL SQ SCH ×2 (06:56→12:04)
[2018-12-18] MEDS: INSULIN (LEVEMIR) 100 UNITS/ML UNITS SQ SCH (06:57)
[2018-12-18 07:24] LABS: BASO % 0.7 % (0-2.0); EOS % 1.4 % (0-4.5); HEMATOCRIT 30.4 % (32.4-45.2); HEMOGLOBIN 9.9 GM/dL (10.7-15.3); LYMPH % 22.1 % (8-40); MCHC 32.6 g/dl (32.0-36.0); MEAN CELL VOLUME 92.2 fl (80-96); MEAN PLT VOLUME 8.3 fl (7.5-11.1); NEUT % 64.8 % (42.8-82.8); PLATELET COUNT 282 K/MM3 (134-434); RBC 3.29 M/mm3 (3.60-5.2); RDW 16.2 % (11.6-15.6); WHITE BLOOD COUNT 4.4 K/mm3 (4.0-10.0)
[2018-12-18 07:31] LABS: ALBUMIN 2.5 g/dl (3.4-5.0); BILIRUBIN,DIRECT 0.1 mg/dL (0.0-0.2); BILIRUBIN,TOTAL 0.3 mg/dL (0.2-1); CALCIUM 7.9 mg/dL (8.5-10.1); POTASSIUM 4.4 mmol/L (3.5-5.1); TOT PROT 5.6 g/dl (6.4-8.2)
[2018-12-18] MEDS: LISINOPRIL 5 MG TABLET (FP) PO SCH (09:50)
[2018-12-18] MEDS: FOLIC ACID 1 MG TABLET (FP) PO SCH (09:50)
[2018-12-18] MEDS: BACITRACIN 15 GM TUBE TOPICAL OINTMENT TP SCH (09:50)
[2018-12-18] MEDS: amLODIPine BESYLATE 5 MG TABLET (FP) PO SCH (09:51)
[2018-12-18] MEDS: METOPROLOL TARTRATE 25 MG TABLET (FP) PO SCH (09:51)
[2018-12-18] MEDS: ESCITALOPRAM OXALATE 10 MG TABLET (FP) PO SCH (09:51)
[2018-12-18 11:36] VITALS: BP 143/89; TEMP 98.5
--- NOTE | 2018-12-18 11:47 | DS ---
Physical Examination Vital Signs: Vital Signs Temperature 98.5 F 12/18/18 10:00 Pulse Rate 72 12/18/18 10:00 Respiratory Rate 20 12/18/18 10:00 Blood Pressure 143/89 12/18/18 10:00 O2 Sat by Pulse Oximetry (%) 94 L 12/17/18 21:00 Findings/Remarks: in bed awake alert afebrile NAD VSS BP and GLU controlled; ate OK no N/V/D/ abdominal pain; wants to go home. d/w pt and daughter: pathology came back negative for malignancy but needs to r/ o biliary malignancy, should see dr Jones at [facility] over the next 2-3 weeks (d/ w pt's daughter to let us know if she needs help with soon appointment she said she will) if negative malignancy she will need cholecystectomy for gallstones over the next few weeks, f/u with surgeron dr Denson if no malignancy found by dr Jones. R forearm superficial thrombophlebitis better on IV ampi & flagyl; d/w GI can DC ATB but will continue amoxicillin po x 5 days for arm thrombophlebitis; local warm / cold compresses meds consults and f/u d/w pt's daughter; RTER if worse or recurrent c/o d.w GI dr Carias and d/w staff T time 40 min Constitutional: Yes: No Distress, Calm Eyes: Yes: Conjunctiva Clear HENT: Yes: Atraumatic Neck: Yes: Supple Cardiovascular: Yes: Regular Rate and Rhythm Respiratory: Yes: CTA Bilaterally Gastrointestinal: Yes: Soft. No: Tenderness Renal/: No: CVA Tenderness - Left, CVA Tenderness - Right, Hematuria Musculoskeletal: No: Joint Stiffness, Joint Swelling Extremities: No: Cold, Cool, Cyanosis Edema: No Integumentary: No: Rash, Venous Stasis Changes Neurological: Yes: WNL, Alert, Oriented ...Motor Strength: WNL Psychiatric: Yes: WNL, Alert, Oriented. No: Agitated, Suicidal Ideation Labs: CBC, BMP 12/18/18 06:15 12/18/18 06:30 Discharge Summary Reason For Visit: GALLSTONE; PANCREATITIS Current Active Problems Abnormal LFTs (Acute) COPD (chronic obstructive pulmonary disease) (Acute) Colon polyps (Acute) Common bile duct stricture (Acute) Diabetes (Acute) Diastolic CHF (Acute) Dilated bile duct (Acute) Gallstone pancreatitis (Acute) HTN (hypertension) (Acute) History of left hip replacement (Acute) Hypokalemia (Acute) Hypomagnesemia (Acute) S/P CABG (coronary artery bypass graft) (Acute) Procedures: Principal: 83 YOF ASHD CABG DM HTN gallstones admitted with N/V/D and abdominal pain, diagnosed with gallstones pancreatitis Other Procedures: found to have gallstones on US and also biliary strictures on ERCP;. needs to r/o biliary malignancy Hospital Course: pt improved with NPO, IVF; pain control; had biliary stent / ERCP; developed small area of thrombophelbitis R forearm / site of an old IV; better with compresses and IV Antibiotics. DC home and to see dr JONES at [facility] r/o biliary malignancy within 1-3 weeks; if no malignancy identified to f/u with GI and surgery for gallstones management ; cholecystectomy?; if positive for malignancy to see ONC dr Laboy # given to pt. f/u as advised with PCP< cardiology also. d/w pt and daughter all the above. Condition: Stable - Instructions Diet, Activity, Other Instructions: f/u PCP, GI in 1-2 weeks after DC from Hospital; to see dr Adam Jones at [facility] within 1-2 weeks to r/o biliary malignancy; f/u cardiology and oncology in 2-4 weeks after DC RTER if worse or recurrent co Referrals: Chitra Lam [Primary Care Provider] - Gerry Carias MD [Staff Physician] - Brock Oliveros MD [Staff Physician] - Jordan Laboy MD [Staff Physician] - Disposition: VNS/HOME HEALTH CARE - Home Medications Comprehensive Discharge Medication List: Ambulatory Orders Acidoph/L.bulg/Bif.b/S.thermop [Bacid Caplet] 1 each PO DAILY 12/11/18 Aspirin [ASA -] 325 mg PO DAILY 12/11/18 Escitalopram Oxalate [Lexapro -] 10 mg PO DAILY 12/11/18 Ferrous Sulfate [Iron] 325 mg PO DAILY 12/11/18 Folic Acid 1 mg PO DAILY 12/11/18 Glyburide 5 mg PO DAILY 12/11/18 Insulin Aspart [Novolog] 6 unit SQ DAILY 12/11/18 Insulin Detemir [Levemir Flextouch] 20 unit SQ DAILY 12/11/18 Meclizine HCl 12.5 mg PO PRN 12/11/18 Multivitamin [Multiple Vitamins] 1 each PO DAILY 12/11/18 Acetaminophen [Tylenol -] 650 mg PO Q8H PRN #30 tablet 12/18/18 Amlodipine Besylate [Norvasc -] 5 mg PO DAILY #90 tablet 12/18/18 Amoxicillin - [Amoxicillin 500mg Capsule -] 500 mg PO TID #15 capsule 12/18/18 Bacitracin - [Bacitracin Topical Ointment -] 1 applic TP BID tube 12/18/18 Lisinopril [Prinivil] 5 mg PO DAILY #90 tablet 12/18/18 Metoprolol Tartrate [Lopressor -] 12.5 mg PO BID #180 tablet 12/18/18 Ondansetron [Zofran -] 4 mg PO TID PRN #30 tablet 12/18/18 Simvastatin 40 mg PO HS 90 Days #90 tablet 12/18/18
--- NOTE | 2018-12-18 14:07 | PN ---
Physical Exam: SUBJECTIVE: Patient seen and examined patient resting in bed nad afebrile hemodynamically stable. tolerates diet, denies n/v/abd pain OBJECTIVE: Vital Signs Period Temp Pulse Resp BP Sys/Gant Pulse Ox Last 24 Hr 97.8 F-98.6 F 64-72 18-20 124-152/66-89 94-95 GENERAL: Awake, alert, and fully oriented, in no acute distress. HEAD: Normal with no signs of trauma. EYES: extraocular movements intact, sclera anicteric, conjunctiva clear. No lid lag. EARS, NOSE, THROAT: Moist mucous membranes. NECK: supple LUNGS: Breath sounds equal, clear to auscultation bilaterally HEART: Regular rate and rhythm, normal S1 and S2 ABDOMEN: Soft, nontender, not distended, normoactive bowel sounds, no guarding, no rebound MUSCULOSKELETAL: No CVA tenderness. Laboratory Results - last 24 hr 12/17/18 12/17/18 12/17/18 07:00 16:46 20:52 WBC RBC Hgb Hct MCV MCH MCHC RDW Plt Count MPV Absolute Neuts (auto) Neutrophils % Lymphocytes % Monocytes % Eosinophils % Basophils % Nucleated RBC % Sodium Potassium Chloride Carbon Dioxide Anion Gap BUN Creatinine Est GFR (CKD-EPI)AfAm Est GFR (CKD-EPI)NonAf POC Glucometer 253 283 Random Glucose Calcium Total Bilirubin Direct Bilirubin AST ALT Alkaline Phosphatase Total Protein Albumin Total Amylase Lipase CA 19-9 Antigen 27 12/18/18 12/18/18 12/18/18 05:34 06:15 06:30 WBC 4.4 RBC 3.29 L Hgb 9.9 L Hct 30.4 L MCV 92.2 MCH 30.0 MCHC 32.6 RDW 16.2 H Plt Count 282 MPV 8.3 Absolute Neuts (auto) 2.9 Neutrophils % 64.8 Lymphocytes % 22.1 D Monocytes % 11.0 H Eosinophils % 1.4 Basophils % 0.7 Nucleated RBC % 0 Sodium 137 Potassium 4.4 Chloride 102 Carbon Dioxide 27 Anion Gap 8 BUN 15 Creatinine 1.0 Est GFR (CKD-EPI)AfAm 60.33 Est GFR (CKD-EPI)NonAf 52.06 POC Glucometer 248 Random Glucose 263 H Calcium 7.9 L Total Bilirubin 0.3 Direct Bilirubin 0.1 AST 51 H ALT 56 Alkaline Phosphatase 151 H Total Protein 5.6 L Albumin 2.5 L Total Amylase 62 Lipase 465 H CA 19-9 Antigen 12/18/18 12:04 WBC RBC Hgb Hct MCV MCH MCHC RDW Plt Count MPV Absolute Neuts (auto) Neutrophils % Lymphocytes % Monocytes % Eosinophils % Basophils % Nucleated RBC % Sodium Potassium Chloride Carbon Dioxide Anion Gap BUN Creatinine Est GFR (CKD-EPI)AfAm Est GFR (CKD-EPI)NonAf POC Glucometer 245 Random Glucose Calcium Total Bilirubin Direct Bilirubin AST ALT Alkaline Phosphatase Total Protein Albumin Total Amylase Lipase CA 19-9 Antigen ASSESSMENT/PLAN: This is an 83 yo F with history of DM, CABG, vertigo and HTN, presented with abd pain x2w, found to have acute biliary pancreatitis. MRCP revealed long distal CBD stricture with proximal ductal dilation and bulging in the duodenal wall suggests a extrinsic tumor such as cholangiocarcinoma or pancreatic cancer. Acute biliary pancreatitis MRCP finding sugestive of cholangioca vs pancreatic CA DM vertigo HTN -require biopsy to confirm dx of CA and MRI abd/pelvis vs PET to stage -patient to f/u outpatient with Dr Adam Hoffman at [facility] for cholangioscopy and possible metallic stent insertion. once apt is made dr Carias will call to move up the apt -outpatient f/u with once biopsy is done. Dispo: We will continue to follow the patient. Thank you for this consultative opportunity.
[2018-12-18 23:00] VITALS: BMI 20.9
== END 2018-12-18 13:49 | disposition home health service (06) | DRG 444 ==
LOC: JER 16:38 → JERBED 19:08 → J8W 20:49
PROVIDERS: ADMIT Internal Medicine; ATTEND Internal Medicine
PROC: 0FD98ZX Extraction of Common Bile Duct, Via Natural or Artificial Opening Endoscopic, Diagnostic (ICD-10-PCS; 2018-12-16)
PROC: 0F798DZ Dilation of Common Bile Duct with Intraluminal Device, Via Natural or Artificial Opening Endoscopic (ICD-10-PCS; principal; 2018-12-16 10:30)
DX: K83.1 Obstruction of bile duct (principal); K85.10 Biliary acute pancreatitis without necrosis or infection; I50.30 Unspecified diastolic (congestive) heart failure; I11.0 Hypertensive heart disease with heart failure; E11.9 Type 2 diabetes mellitus without complications; I25.10 Atherosclerotic heart disease of native coronary artery without angina pectoris; J44.9 Chronic obstructive pulmonary disease, unspecified; F17.210 Nicotine dependence, cigarettes, uncomplicated; E78.5 Hyperlipidemia, unspecified; F41.9 Anxiety disorder, unspecified; I27.20 Pulmonary hypertension, unspecified; Z96.649 Presence of unspecified artificial hip joint; E87.6 Hypokalemia; E83.42 Hypomagnesemia; K63.5 Polyp of colon; K83.8 Other specified diseases of biliary tract; R94.5 Abnormal results of liver function studies; Z95.1 Presence of aortocoronary bypass graft
CPT/HCPCS: 36415; 71046-TC-FY; 74182-TC; 74330-TC; 76705-TC; 80048; 80053; 80076; 81003; 82150; 82248; 82550; 82962; 83690; 83735; 84443; 84484; 85025; 85610; 85730; 86140; 86301; 88104; 88305-TC; 93005; 93010; 93306-TC; 99284-25; J1644; J7030

== ENCOUNTER → 2021-03-20 | Day surgery (SDC) | payer OTHER | END | disposition home or self-care (01) | LOC: JRADIR 09:37 | PROVIDERS: ATTEND Internal Medicine Endocrinology, Diabetes & Metabolism | PROC: 0G9H3ZX Drainage of Right Thyroid Gland Lobe, Percutaneous Approach, Diagnostic (ICD-10-PCS; principal; 2021-03-20) | DX: E04.1 Nontoxic single thyroid nodule (principal) | CPT/HCPCS: 10005; 76942; 88173; 88305-TC ==